=== PATIENT | male | born 1970 | race Two or more races ===

== ENCOUNTER 2020-07-02 12:29 | Emergency (ER) | payer OTHER, SELFPAY ==
[2020-07-02 13:22] VITALS: BP 155/94; PULSE 82; RESP 18; TEMP 37.1; O2SAT 98; BMI 36.3
--- NOTE | 2020-07-02 15:08 | ED_ITS ---
HPI - General Adult General Chief complaint: GI Bleed <MARA Amanda Last Filed: 07/02/20 16:24> Stated complaint: rectal bleed <MARA Amanda Last Filed: 07/02/20 16:24> Time Seen by Provider: 07/02/20 14:20 <MARA Amanda Last Filed: 07/02/20 16:24> Source: patient <MARA Amanda Last Filed: 07/02/20 16:24> Mode of arrival: ambulatory <MARA Amanda Last Filed: 07/02/20 16:24> Limitations: no limitations <MARA Amanda Last Filed: 07/02/20 16:24> History of Present Illness HPI narrative: 50-year-old male here with hemorrhoid per patient x1 week which has been painful. Patient noticed this morning in the night when he woke up to use the bathroom that he was having some bleeding from the rectum. This has continued through the day and he became concerned and brought himself here to the emergency department. Denies constipation, abdominal pain or vomiting. Stools are brown <MARA Amanda Last Filed: 07/02/20 16:24> Related Data Home medications: Previous Rx's Medication Instructions Recorded docusate sodium [Colace] 100 mg PO BID #20 cap 07/02/20 oxycodone 5 mg PO Q6H PRN #10 tab 07/02/20 polyethylene glycol 3350 [Miralax] 17 g PO BID #238 g 07/02/20 <MARA Amanda Last Filed: 07/02/20 16:24> Allergies/adverse reactions: Allergies Allergy/AdvReac Type Severity Reaction Status Date / Time No Known Allergies Allergy Verified 07/02/20 13:21 <MARA Amanda Last Filed: 07/02/20 16:24> Review of Systems Review of Systems: Yes all other systems are reviewed and are negative <MARA Amanda Last Filed: 07/02/20 16:24> Constitutional: Constitutional: Reports no additional constitutional complaints, Denies body ache(s), Denies chills, Denies fever(s), Denies headache(s) and Denies weakness <Tiffany Lazaro NP - Last Filed: 07/02/20 16:24> Eyes: Eyes: Reports no additional eye complaints and Denies change in vision <Tiffany Lazaro NP - Last Filed: 07/02/20 16:24> ENT: Reports system reviewed and no additional complaints, except as documented, Denies dizziness, Denies headache(s), Denies nasal congestion, Denies nasal discharge and Denies neck pain <Tiffany Lazaro NP - Last Filed: 07/02/20 16:24> Cardiovascular: Cardiovascular: Reports no additional cardiovascular complaints, Denies chest pain, Denies leg edema and Denies dyspnea <Tiffany Lazaro NP - Last Filed: 07/02/20 16:24> Respiratory: Respiratory: Reports no additional respiratory complaints, Denies cough and Denies dyspnea <Tiffany Lazaro NP - Last Filed: 07/02/20 16:24> Gastrointestinal: Gastrointestinal: Reports no additional gastrointestinal complaints, Denies abdominal pain, Denies melena, Denies hematochezia, Denies diarrhea, Denies nausea and Denies vomiting <Tiffany Lazaro NP - Last Filed: 07/02/20 16:24> Comments: Rectal bleeding <Tiffany Lazaro NP - Last Filed: 07/02/20 16:24> Genitourinary: Genitourinary: Denies urinary incontinence <Tiffany Lazaro NP - Last Filed: 07/02/20 16:24> Musculoskeletal: Musculoskeletal: Reports no additional musculoskeletal complaints, Denies back pain, Denies arthralgias, Denies joint swelling, Denies neck pain, Denies numbness and Denies tingling <Tiffany Lazaro NP - Last Filed: 07/02/20 16:24> Integumentary/Breasts: Skin/Breast: Reports system reviewed and no additional complaints, except as docu and Denies rash <Tiffany Lazaro NP - Last Christ ed: 07/02/20 16:24> Neurologic: Reports system reviewed and no additional complaints, except as documented, Denies Abnormal speech present, Denies dizziness, Denies headache(s), Denies numbness, Denies tingling and Denies weakness <Tiffany Lazaro NP - Last Filed: 07/02/20 16:24> [facility] Past Medical History Attestation statement: The following information was validated with the patient. <Tiffany Lazaro NP - Last Filed: 07/02/20 16:24> Source: old records reviewed and nursing notes reviewed <Tiffany Lazaro NP - Last Filed: 07/02/20 16:24> Physical Exam Vital Signs: Vital Signs: Last Vital Signs Temp 98.7 F 07/02/20 13:22 Pulse 82 07/02/20 13:22 Resp 18 07/02/20 13:22 BP 155/94 H 07/02/20 13:22 Pulse Ox 98 07/02/20 13:22 Body Mass Index 36.3 <Tiffany Lazaro NP - Last Filed: 07/02/20 16:24> Vital Signs: Last Vital Signs Temp 98.7 F 07/02/20 13:22 Pulse 82 07/02/20 13:22 Resp 18 07/02/20 13:22 BP 155/94 H 07/02/20 13:22 Pulse Ox 98 07/02/20 13:22 Body Mass Index 36.3 <Jb Robins MD - Last Filed: 07/17/20 07:58> Const: General: cooperative, healthy appearing, comfortable and no acute distress <Tiffany Lazaro NP - Last Filed: 07/02/20 16:24> Orientation/consciousness: patient oriented x3 <Tiffany Lazaro NP - Last Filed: 07/02/20 16:24> Limitations: no limitations <Tiffany Lazaro NP - Last Filed: 07/02/20 16:24> HENMT: Head: Yes normal to inspection <Tiffany Lazaro NP - Last Filed: 07/02/20 16:24> Ears: hearing grossly normal bilaterally <MARA Amanda Last Filed: 07/02/20 16:24> General nose exam: Normal external nose present <MARA Amanda Last Filed: 07/02/20 16:24> Face and sinus: Yes normal facial exam <Tiffany Lazaro NP - Last Filed: 07/02/20 16:24> Mouth: Normal oral and palatal mucosa present <Tiffany Lazaro NP - Last Filed: 07/02/20 16:24> Throat: Yes posterior oropharynx normal <Tiffany Lazaro NP - Last Filed: 07/02/20 16:24> Eyes: General: appearance normal, both eyes and all related structures <Tiffany Lazaro NP - Last Filed: 07/02/20 16:24> Pupils: Equal, round and reactive pupils present <Tiffany Lazaro NP - Last Filed: 07/02/20 16:24> Neck: Neck: Yes normal visual inspection <Tiffany Lazaro NP - Last Filed: 07/02/20 16:24> Chest: Chest palpation & inspection: normal inspection of the chest <Tiffany Lazaro NP - Last Filed: 07/02/20 16:24> Resp: Effort & Inspection: normal respiratory effort <Tiffany Lazaro NP - Last Filed: 07/02/20 16:24> Auscultation: clear to auscultation bilaterally <Tiffany Lazaro NP - Last Filed: 07/02/20 16:24> Cardio: Rate: regular rate <Tiffany Lazaro NP - Last Filed: 07/02/20 16:24> Rhythm: regular rhythm <Tiffany Lazaro NP - Last Filed: 07/02/20 16:24> Peripheral pulses: Peripheral pulses 2+ throughout <Tiffany Lazaro NP - Last Filed: 07/02/20 16:24> GI: Other: Kristian RN present. At the 6 o'clock position there is a thrombosed hemorrhoid which is partially draining with a large clot obstructing the opening of the hemorrhoid. Very te nder <Tiffany Lazaro NP - Last Filed: 07/02/20 16:24> Inspection: Yes normal to inspection <Tiffany Lazaro NP - Last Filed: 07/02/20 16:24> Palpation (GI): Soft to palpation and nontender <Tiffany Lazaro NP - Last Filed: 07/02/20 16:24> Auscultation: normal bowel sounds <Tiffany Lazaro NP - Last Filed: 07/02/20 16:24> Back/Spine/Pelvis: Thoracic/Lumbar Spine: thoracic and lumbar spine normal to inspection <Tiffany Lazaro NP - Last Filed: 07/02/20 16:24> Skin: General skin exam: no rashes or lesions noted <Tiffany Lazaro NP - Last Filed: 07/02/20 16:24> Neuro: General: patient oriented x3, no focal motor deficits and normal sensation to monofilament <Tiffany Lazaro NP - Last Filed: 07/02/20 16:24> Cranial nerves: Yes Equal, round and reactive pupils present <Tiffany Lazaro NP - Last Filed: 07/02/20 16:24> Cognition (Neuro): normal cognition <Tiffany Lazaro NP - Last Filed: 07/02/20 16:24> Speech: No Abnormal speech present <Tiffany Lazaro NP - Last Filed: 07/02/20 16:24> Gait exam (Neuro): Normal gait present <Tiffany Lazaro NP - Last Filed: 07/02/20 16:24> Motor exam (neuro): 5/5 motor strength present throughout <Tiffany Lazaro NP - Last Filed: 07/02/20 16:24> Extrem: General: Yes normal to inspection <Tiffany Lazaro NP - Last Filed: 07/02/20 16:24> Course Course Course Narrative: 50-year-old male here with thrombosed hemorrhoid x 1 week. Has had some rectal bleeding today from the site. No black or bloody stools. On exam the patient has a large thrombosed hemorrhoid. There was a small incision and a clot obstructing the incision. I was able to express 2-3 large clots from the site however the patient had quite a bit of pain. The area was numbed with 4% lidocaine and I attempted to break up the clots with foreceps and expressed a moderate amounts of blood and clots but the patient was unable to complete the procedure d/t pain. Will refer to general surgery. Discussed with Dr Spangler who will follow-up with patient in the office. Reviewed worrisome signs and symptoms and when to return to the emergency department. Comfortable discharge home. <Tiffany Lazaro NP - Last Filed: 07/02/20 16:24> I have reviewed the chart <Jb Robins MD - Last Filed: 07/17/20 07:58> Medical Decision Making Medical Records Medical records reviewed: Yes I reviewed the patient's medical records. <Tiffany Lazaro NP - Last Filed: 07/02/20 16:24> Lab Data Lab results reviewed: Yes I reviewed the patient's lab results. <Tiffany Lazaro NP - Last Filed: 07/02/20 16:24> Discharge Plan Discharge Clinical Impression: Hemorrhoids, thrombosed <Tiffayn Lazaro NP - Last Filed: 07/02/20 16:24> Patient Disposition: Home, Self-Care <Tiffany Lazaro NP - Last Filed: 07/02/20 16:24> Instructions: Thrombosed Hemorrhoid (ED) <Tiffany Lazaro NP - Last Filed: 07/02/20 16:24> Additional Instructions: Avoid constipation (fiber, fluid in the diet) I expect that this is going to continue to bleed and the next few days. You may use a pad or gauze at the site for this. Call Dr. Spangler office today. He is expecting your call and will see you in the office tomorrow or the next day <Tiffany Lazaro NP - Last Filed: 07/02/20 16:24> Prescriptions: New docusate sodium [Colace] 100 mg capsule 100 mg PO BID Qty: 20 RF: 0 polyethylene glycol 3350 [Miralax] 17 gram/dose powder 17 g PO BID Qty: 238 RF: 0 oxycodone 5 mg tablet 5 mg PO Q6H PRN (Reason: pain) Qty: 10 RF: 0 <Tiffany Lazaro NP - Last Filed: 07/02/20 16:24> Referrals: Geo Spangler MD [Physician] - 2 days <Tiffany Lazaro NP - Last Filed: 07/02/20 16:24> Interventions: ED Discharge Assessment Last Done: 07/02/20 16:00 <Tiffany Lazaro NP - Last Filed: 07/02/20 16:24> Discharge Date/Time: 07/02/20 16:02 <Tiffany Lazaro NP - Last Filed: 07/02/20 16:24>
[2020-07-02] MEDS: Lidocaine HCl 4 % MPF w/MADgic 5 ML AMPUL 1 APPL TOPICAL (15:57)
== END 2020-07-02 16:02 | disposition home or self-care (01) ==
PROVIDERS: Emergency Provider Emergency Medicine
DX: K64.5 Perianal venous thrombosis (principal); K62.5 Hemorrhage of anus and rectum
CPT/HCPCS: 99283; 99284

== ENCOUNTER → 2020-07-25 15:23 | Outpatient (BNVA) | payer OTHER, SELFPAY | PROVIDERS: Visit Provider Surgery | DX: K64.5 Perianal venous thrombosis (principal) | CPT/HCPCS: 46600 ==

== ENCOUNTER 2022-08-18 06:28 | Day surgery (SDC) | payer OTHER, SELFPAY ==
--- NOTE | 2022-08-15 10:26 | P.CONAN_ITS ---
Documented by User: Maryuri Metcalf NP 08/15/22 10:27 HPI - Anesthesia Eval Consult details Narrative: 52yo M for Colonoscopy [facility] Active Problems Active Problems: All Active Problems (Updated 07/25/20 @ 16:07 by Geo Spangler MD) Thrombosed hemorrhoids (Acute) Past Medical History Medical History (Updated 08/15/22 @ 10:27 by Maryuri Metcalf NP) Hypothyroid Thrombosed hemorrhoids Surgical History Surgical History (Updated 08/15/22 @ 10:27 by Maryuri Metcalf NP) H/O vasectomy History of removal of cyst Social History Social History Alcohol intake: current Alcohol intake frequency: holidays/special occasions only Patient Tobacco Use Status: Never used Tobacco Second Hand Smoke Exposure: No Use of substances other than those prescribed or required for medical reasons: Yes Are you DNR?: No Advance Directives: No Advance Directives Information Provided: Yes Advance Directives on File: No Meds Allergies Allergy/AdvReac Type Severity Reaction Status Date / Time No Known Allergies Allergy Verified 07/02/20 13:21 Home Medications Medication Instructions Recorded Confirmed Last Taken Type levothyroxine 50 mcg tablet 50 mcg PO DAILY 08/15/22 08/15/22 Unknown History Exam Exam Date and Time: August 15, 2022 1026 Documented by User: Patsy Lee MD 08/18/22 08:03 [facility] Past Medical History Medical History (Updated 08/15/22 @ 10:27 by Maryuri Metcalf NP) Hypothyroid Thrombosed hemorrhoids Family History Family history of problems with anesthesia: No Surgical History Surgical History (Updated 08/15/22 @ 10:27 by Maryuri Metcalf NP) H/O vasectomy History of removal of cyst History of Problems with Anesthesia: No Social History Social History Alcohol intake: current Alcohol intake frequency: holidays/special occasions only Patient Tobacco Use Status: Never used Tobacco Second Hand Smoke Exposure: No Use of substances other than those prescribed or required for medical reasons: Yes Are you DNR?: No Advance Directives: No Advance Directives Information Provided: Yes Advance Directives on File: No Meds Allergies Allergy/AdvReac Type Severity Reaction Status Date / Time No Known Allergies Allergy Verified 07/02/20 13:21 Home Medications Medication Instructions Recorded Confirmed Last Taken Type levothyroxine 50 mcg tablet 50 mcg PO DAILY 08/15/22 08/15/22 Unknown History Exam Airway Mallampati Class: II TM Dist: >3cm Neck ROM: Full Loose/Missing/Broken Teeth: No Heart: rr Lungs: cta Assessment and Plan Assessment Anesthesia Assessment: Anesthesia Plan Discussed and Chart Reviewed Final Anesthetic Review Family History of Problems with Anesthesia: No History of Problems with Anesthesia: No NPO: Yes ASA Class: II Final Preanesthetic Review: No Changes in Pt Med Stat, Meds/Allgs Chart Reviewed and Consent Obtained/Reviewed Patient Risk: Low Procedure Risk: Low Anesthetic Plan Anesthetic Plan: MAC: Disposition: Standard PACU
[2022-08-18 07:05] VITALS: BMI 37.5
[2022-08-18 07:15] VITALS: BP 154/101; PULSE 74; RESP 16; TEMP 36.3; O2SAT 98
[2022-08-18] MEDS: Lactated Ringers 1,000 ML 100 ML IVCONT (07:21)
[2022-08-18 08:35] VITALS: BP 115/92; PULSE 76; RESP 16; TEMP 36.2; O2SAT 96
--- NOTE | 2022-08-18 08:36 | P.BOP_ITS ---
Brief Operative Note Date of Service: 08/18/22 Pre-op diagnosis: Screening Post-op diagnosis: other (Colon polyp) Procedure: Colonoscopy to the cecum with hot snare polypectomy Surgeon: Dann Daniels Anesthesia: MAC Was an Professional Development Instructor used for this Procedure?: No Estimated blood loss (mL): 0 Pathology: other (A. Polyp at 50cm) Condition: stable Disposition: PACU
[2022-08-18 08:50] VITALS: BP 124/80; PULSE 71; RESP 18; TEMP 36.2; O2SAT 97
--- NOTE | 2022-08-18 09:17 | OP_ITS ---
DATE OF SERVICE: 08/18/2022 SURGEON: Dann Daniels MD INDICATIONS: The patient presents for evaluation of colorectal cancer screening. Full consent obtained from him for this, including risks of bleeding and perforation. PREOPERATIVE DIAGNOSIS: POSTOPERATIVE DIAGNOSIS: PROCEDURE PERFORMED: Colonoscopy to cecum with hot snare polypectomy. ESTIMATED BLOOD LOSS: COMPLICATIONS: ANESTHESIA: Monitored anesthesia care. ASSISTANTS: SPECIMENS: PREOPERATIVE DIAGNOSES: Colorectal cancer screening. POSTOPERATIVE DIAGNOSES: Colorectal cancer screening, colon polyp, diverticulosis, and internal hemorrhoids. DESCRIPTION OF PROCEDURE: The patient was placed in the left lateral decubitus position. The digital rectal exam revealed no abnormalities. The Olympus video pediatric colonoscope was entered into the rectum and advanced easily to the cecum. Once in the cecum, I did identify normal-appearing cecal pouch with appendiceal orifice and a normal-appearing ileocecal valve. The entire cecum and ileocecal valve appeared normal without any sign of mass or ulceration. The scope was then slowly withdrawn assessing all mucosal surfaces carefully. Preparation was excellent. At 50 cm was an approximately 8 mm grossly adenomatous polyp on a short stalk, which was removed by hot snare polypectomy and recovered by suction. The polypectomy site appeared clean, without any sign of residual polyp or bleeding. I did not visualize any other polyps, colitis, nor angiodysplasia. There was a [id number] amount of sigmoid diverticulosis. In the rectum, the scope was retroflexed visualizing internal hemorrhoids, but no other pathology. The rectal mucosa appeared normal. The scope was straightened and withdrawn from the patient. He tolerated procedure well and was returned to recovery area in stable condition. IMPRESSION: 1. Colon polyp. 2. Diverticulosis. 3. Internal hemorrhoids. PLAN: The results of the pathology will be checked. If this is a tubular adenoma, I would recommend a followup colonoscopy in 5 years. If it is only hyperplastic, I would recommend a followup coloscopy in 10 years. He was advised not to use any aspirin or NSAIDs for 1 week. MD MEENA Anders/SEVERINOL / [id number]
== END 2022-08-18 09:11 | disposition home or self-care (01) ==
PROVIDERS: Visit Provider Internal Medicine
PROC: 0DJD8ZZ Inspection of Lower Intestinal Tract, Via Natural or Artificial Opening Endoscopic (ICD-10-PCS; CPT 45378; principal; 2022-08-18 07:30)
DX: Z12.11 Encounter for screening for malignant neoplasm of colon (principal); D12.5 Benign neoplasm of sigmoid colon; K57.30 Diverticulosis of large intestine without perforation or abscess without bleeding; K64.8 Other hemorrhoids; E03.9 Hypothyroidism, unspecified; Z98.52 Vasectomy status; Z79.899 Other long term (current) drug therapy
CPT/HCPCS: 45385; 88305

== ENCOUNTER 2023-05-05 06:04 | Outpatient (REF) | payer OTHER, SELFPAY ==
[2023-05-05 07:28] LABS: Estimated Average Glucose 114 mg/dL; Hemoglobin A1C 149.1663 umol/L; Hemoglobin A1c % 5.6 % (<6.0)
[2023-05-05 08:06] LABS: Alanine Aminotransferase 51 U/L (0-40); Albumin Level 4.4 g/dL (3.5-5.0); Alkaline Phosphatase 62 U/L (39-117); Anion Gap 12 (12-20); Aspartate Amino Transferase 41 U/L (5-37); Bilirubin Total 0.6 mg/dL (0.0-1.0); Blood Urea Nitrogen 17 mg/dL (9-16); Calcium 9.9 mg/dL (8.4-10.2); Carbon Dioxide 28 mmol/L (22-29); Chloride 104 mmol/L (96-108); Cholesterol 197 mg/dL (<200); Estimated Glomerular Filt Rate > 60; Glucose Random 93 mg/dL (60-115); HDL Cholesterol 46 mg/dL (>40); LDL Cholesterol Calculated 132 mg/dL (<100); Potassium 4.4 mmol/L (3.3-5.1); Sodium 140 mmol/L (135-145); Total Protein 7.7 g/dL (6.5-8.0); Triglycerides 98 mg/dL (<150)
[2023-05-05 09:29] LABS: Free T4 (Free Thyroxine) 0.91 ng/dL (0.71-1.85)
[2023-05-05 10:32] LABS: Reflex LDLD? No
== END 2023-05-05 06:05 | disposition home or self-care (01) ==
LOC: HO.LAB 06:04
PROVIDERS: PCP Family Medicine; Visit Provider Family Medicine
DX: I10 Essential (primary) hypertension (principal); E03.9 Hypothyroidism, unspecified
CPT/HCPCS: 36415; 80053; 80061; 83036; 84439; 84443

== ENCOUNTER 2024-01-19 16:25 | Outpatient (REF) | payer OTHER, SELFPAY ==
[2024-01-19 17:36] LABS: MANUAL DIFF FLAG NO
[2024-01-19 17:58] LABS: Basophils Absolute Auto 0.1 X10*3/uL (0.0-0.2); Basophils Percent Auto 0.8 % (0-2); Eosinophils Absolute Auto 0.3 X10*3/uL (0.0-0.4); Eosinophils Percent Auto 4.7 % (0-4); Hematocrit 47.2 % (42.0-52.0); Hemoglobin 15.8 g/dl (14.0-18.0); Imm Gran Abs Auto 0.01 X10*3/uL (0.00-0.03); Imm Gran Pct Auto 0.2 % (0.0-0.4); Lymphocytes Absolute Auto 1.8 X10*3/uL (1.2-4.9); Lymphocytes Percent Auto 29.6 % (20-40); Mean Corpuscular HGB Conc 33.5 g/dl (31.0-36.0); Mean Corpuscular Hemoglobin 28.8 pg (27.0-33.0); Mean Platelet Volume 9.6 fL (9.4-12.4); Monocytes Absolute Auto 0.6 X10*3/uL (0.1-1.2); Monocytes Percent Auto 9.3 % (2-11); Neutrophils Absolute Auto 3.3 x10*3/uL (2.0-8.3); Neutrophils Percent Auto 55.4 % (45-73); Platelet Count 222 X10*3/uL (160-400); Red Blood Count 5.49 X10*6/uL (4.60-5.80); Red Cell Distribution Width 13.2 % (11.0-16.0)
[2024-01-19 18:24] LABS: Creatinine Urine 139.05 mg/dL; Microalbum/Creatinine Ratio Ur 4.3 ug/mg cr (<30)
[2024-01-19 18:28] LABS: Alanine Aminotransferase 54 U/L (0-40); Albumin Level 4.5 g/dL (3.5-5.0); Alkaline Phosphatase 75 U/L (39-117); Anion Gap 13 (12-20); Aspartate Amino Transferase 53 U/L (5-37); Bilirubin Direct 0.2 mg/dL (0.0-0.5); Bilirubin Total 0.6 mg/dL (0.0-1.0); Blood Urea Nitrogen 24 mg/dL (9-16); Calcium 10.2 mg/dL (8.4-10.2); Carbon Dioxide 25 mmol/L (22-29); Chloride 107 mmol/L (96-108); Cholesterol 287 mg/dL (<200); Estimated Glomerular Filt Rate > 60; Glucose Random 108 mg/dL (60-115); HDL Cholesterol 57 mg/dL (>40); LDL Cholesterol Calculated 183 mg/dL (<100); Sodium 141 mmol/L (135-145); Total Protein 7.9 g/dL (6.5-8.0); Triglycerides 236 mg/dL (<150)
[2024-01-19 18:31] LABS: TSH reflex Free T4 5.35 uIU/mL (0.32-4.0)
[2024-01-19 19:49] LABS: Reflex LDLD? No
[2024-01-19 21:02] LABS: Free T4 (Free Thyroxine) 0.77 ng/dL (0.71-1.85)
[2024-01-24 14:34] LABS: Testosterone, Total 595 ng/dL (250-1100)
== END 2024-01-19 16:26 | disposition home or self-care (01) ==
LOC: HO.HHCL 16:25
PROVIDERS: Visit Provider Family Medicine
DX: R74.01 Elevation of levels of liver transaminase levels (principal); N52.9 Male erectile dysfunction, unspecified; E78.5 Hyperlipidemia, unspecified; I10 Essential (primary) hypertension; E03.9 Hypothyroidism, unspecified; Z12.5 Encounter for screening for malignant neoplasm of prostate
CPT/HCPCS: 36415; 80048; 80061; 80076; 82043; 82570; 84153; 84403; 84439; 84443; 85025

== ENCOUNTER 2024-05-20 09:57 | Outpatient (REF) | payer BC, SELFPAY ==
--- OUTSIDE RECORDS SUMMARY | 2024-05-20 10:44 | XMS_ITS | Encounter Summary ---
Author Organization [employer] Address [address] [place] [address] Care Team Providers Care Order Filler Name Role Phone Chelsea Mejía MD Primary Care Provider [phone] Encounter Details Date Type Department Care Team (Latest Contact Info) Description 05/17/2024 Travel Social History Tobacco Use Types Packs/Day Years Used Date Smoking Tobacco: Never Smokeless Tobacco: Never Alcohol Use Standard Drinks/Week Comments Yes 0 (1 standard drink = 0.6 oz pur e alcohol) oca Depression Answer Date Recorded Patient Health Questionnaire-9 Score 0 05/17/2024 Patient Health Questionnaire-9 Score 0 05/17/2024 Last PHQ-9: Questionnaire Data Not on file 0 05/17/2024 Housing Stability Answer Date Recorded What is your housing situation today? I have sonido salazar 05/02/[address] you li ve. Do you have problems with any of the following? None of the above 05/02/2024 Food Insecurity Answer Date Recorded Within the past 12 months, y ou worried that your food would run out before you got money to buy more: Never True 05/02/2024 Within the past 12 months,th e food you bought just didn't last and you didn't have enough money to get more: Never True 05/2024 Transportation Answer Date Recorded In the past 12 months, has l ack of transportation kept you from medical appts, meetings, work or from getting things needed for daily living? No 05/02/2024 Utilities Answer Date Recorded In the past 12 months, has t he electric, gas, oil or water company threatened to shut off services in your home? No 05/02/2024 Depression Answer Date Recorded Patient Health Questionnaire-2 Score 0 05/17/2024 Internet Access Answer Date Recorded Internet Access Q1 Yes 05/02/2024 Internet Access Q2 Not on file 05/02/2024 Sex and Gender Information Value Date Recorded Sex Assigned at Male 01/27/2022 10:33 AM EDT Legal Sex Male 10:33 AM EDT Gender Identity Male 01/27/2022 10:33 AM EDT Sexual Orientation Don't know 01/27/2022 10 :33 AM EDT documented as of this encounter Plan of Treatment Upcoming Encounters Date Type Department Care Team (Late st Contact Info) Description 06/03/2024 2:00 PM EST Office Visit [facility] [address] [place] [address] Juve Allison MD [address] [place] [address] documented as of this encounter Visit Diagnoses Not on filedocumented in this encounter Additional Health Concerns Assessment Noted Time PHQ-9 Depression Total Score: 0 05/17/19 25 3:50 PM EST documented as of this encounter Care Teams Order Filler Relationship Specialty Start Date End Date Chelsea Mejía MD [address] [place] [address] PCP - General Family Medicine 04/20/23 documented as of this encounter
--- OUTSIDE RECORDS SUMMARY | 2024-05-20 10:44 | XMS_ITS | Patient Health Record ---
Author Organization [facility] Address [address] [place] [id number] Care Team Providers Care Extruder Name Role Phone Grady Helton Primary Care Provider Dann Garcia Unavailable [phone] ALLERGIES No Known Allergies REASON FOR REFERRAL No Information MEDICATIONS Medication SIG (Take, Route, Frequency, Duration) Notes Start Date End Date Status Levothyroxine Sodium 50 MCG Oral for 90 Active IMMUNIZATIONS Vaccine Route Administration Date Status Comme nts Influenza Unknown 11/28/2021 Administered SOCIAL HISTORY Tobacco Use: Social History Observation Description Date Details (start date - stop date) Never Smoker NA - NA Sex Assigned At : Social History Observation Description Sex Assigned At Unknown Tobacco Use/Smoking Question Answer Notes Patient is a nonsmoker Alcohol Screen Question Answer Notes Did you have a drink contain ing alcohol in the past year? Yes How often did you have a dri nk containing alcohol in the past year? 2 to 3 times a week (3 points) How many drinks did you have on a typical day when you were drinking in the past year? 7 to 9 drinks (3 points) Points 6 Interpretation Positive PROBLEMS Problem Type ICD Code Onset Dates Problem Status W/U Status Risk SNOMED Code Notes Problem Colon cancer screening (Z12.11) Active confirmed 089847649 Problem Preprocedural examination (Z01.818) Active confirmed [id number] Problem Diverticulosis of colon (K57.30) Active confirmed Diverticulosi s of colon (370206697) PLAN OF TREATMENT Pending Test Test Name Order Date Pathology 08/18/2022 Future Test Test Name Order Date COLONOSCOPY 05/30/2022 Insurance Providers Payer Name Payer Address Payer Phone Subscriber Number Group Number Insured Name Patient Relationship to Insured Coverage Start Date Coverage End Date [facility] [address] [place] [phone] [id number] JUAN CESAR Self - patient is the insured MEDICAL (GENERAL) HISTORY Medical History History ICD Code Denies CO,DM,CVA,Lung disease,renal dise ase Hypothyroidism Surgical History Surgery Date(Month/Year) Vasectomy Left leg benign tumor removal [place] teeth extraction
--- OUTSIDE RECORDS SUMMARY | 2024-05-20 10:44 | XMS_ITS | Encounter Summary ---
Author Organization [employer] Address [address] [place] [address] [address] [place] [address] Care Team Providers Care Obstetrical Nurse Name Role Phone Grady Helton MD Primary Care Provider Kemi Albarran Primary Care Provider [phone] Kemi Aguilar [employer] Primary Care Provider [phone]- [phone] Sandra Jaeger NP Primary Care Provider [phone] Chelsea Mejía MD Primary Care Provider [phone] Reason for Visit * Reason Comments Med Refill Encounter Details Date Type Department Care Team (Late st Contact Info) Description 04/27/2022 Refill [facility] [address] [place] [address] Kemi Aguilar [address] [place] [address] Hypothyroidism, unspecified type Social History Tobacco Use Types Packs/Day Years Used Date Smoking Tobacco: Never Assessed Sex and Gender Information Value Date Recorded [...] 2:00 PM EST Office Visit [facility] [address] [place], [place] [phone] uJve Allison MD [address] [place], [place] [phone] documented as of this encounter Visit Diagnoses Diagnosis Hypothyroidism, unspecified type documented in this encounter Care Teams Obstetrical Nurse Relationship Specialty Start Date End Date Grady Helton MD PCP - General Family Medicine 03/14/19 04/27/22 Kemi Aguilar FNP PCP - General Family Medicine 04/28/22 09/10/22 Kemi Aguilar FNP PCP - General Family Medicine 11/03/22 01/05/23 Sandra Jaeger NP [address] [place] [address] PCP - General Family Medicine 01/06/23 04/19/23 Chelsea Mejía MD [address] [place] [address] PCP - General Family Medicine 04/20/23 documented as of this encounter
--- OUTSIDE RECORDS SUMMARY | 2024-05-20 10:44 | XMS_ITS | Encounter Summary ---
Author Organization [employer] Address [address] [facility] [address]t [place] [address] Care Team Providers Care Hat Block Bench Hand Name Role Phone Chelsea Mejía MD Primary Care Provider [phone] Encounter Details Date Type Department Care Team (Late st Contact Info) Description 05/17/2024 1:45 PM EST Office Visit [facility] [address] [place] [address] Chelsea Mejía MD [address] [place] [address] Routine general medical examination at a health care facility (Primary Dx); Essential hypertension; Acquired hypothyroidism; Tubular adenoma; Dyslipidemia; Erectile dysfunction, unspecified erectile dysfunction type; Varicose veins of lower extremity, unspecified laterality, unspecified whether complicated; Daytime somnolence; Obesity (BMI 35.0-39.9 without comorbidity); Transaminitis Social History Tobacco Use Types Packs/Day Years [...] AM EDT documented as of this encounter Last Filed Vital Signs Vital Sign Reading Time Taken Comments Blood Pressure 149/84 05/17/2024 2:25 PM EST Pulse 85 05/17/2024 2:03 PM EST Temperature 36.3 ??C (97.3 ??F) 05/17/2024 2:03 PM ES T Respiratory Rate 19 05/17/2024 2:03 PM EST Oxygen Saturation 97% 05/17/2024 2:03 PM EST Inhaled Oxygen Concentration - - Weight 96.3 kg (212 lb 6.4 oz) 05/17/2024 2:03 P M EST Height - - Body Mass Index 34.81 04/20/2023 2:20 PM EST documented in this encounter Miscellaneous Notes * Assessment & Plan Note - Ivanna Lowry MA - 05/17/2024 2:57 PM ESTAssociated Problem(s): Dyslipidemia Currently not on medication since 10-year ASCVD risk is 6.2% Continue working on lifestyle modifications * Assessment & Plan Note - Ivanna Lowry MA - 05/17/2024 2:57 PM ESTAssociated Problem(s): Tubular adenoma - colonoscopy on 08/18/[address] Daniels - lifestyle modifications to prevent colon cancer * Assessment & Plan Note - Ivanna Lowry MA - 05/17/2024 2:57 PM ESTAssociated Problem(s): Varicose veins of lower extremity - s/p phlebectomy by [facility] vascular specialist in 2019 * Assessment & Plan Note - Ivanna Lowry MA - 05/17/2024 2:56 PM ESTAssociated Problem(s): Daytime somnolence - loud snoring - consider evaluating with sleep study * Assessment & Plan Note - Ivanna Lowry MA - 05/17/2024 2:56 PM ESTAssociated Problem(s): Essential hypertension -Goal BP < 140/90 per JNC-8 and < 130/80 per ACC/AHA guideline (Treatment threshold >= 140/90) -BP not at goal -Continue working on lifestyle modifications -Recommended self-monitoring BP. -Resume losartan 25 mg daily -Treatment Hx: Prescribed hydrochlorothiazide previously, but never took it -consider sleep study -Follow up in 3 mo, sooner if any problem arises * Assessment & Plan Note - Ivanna Lowry MA - 05/17/2024 2:56 PM ESTAssociated Problem(s): Erectile dysfunction - check testosterone, PSA, tsh - optimize chronic disease management - prescribe tadalafil if lab is within normal limit * Assessment & Plan Note - Ivanna Lowry MA - 05/17/2024 2:56 PM ESTAssociated Problem(s): Hypothyroidism - current replacement levothyroxine 50 mcg daily - check thyroid function test and adjust accordingly - Ordered TSH with Reflex to Free T4 05/17/24 * Assessment & Plan Note - Ivanna Lowry MA - 05/17/2024 2:51 PM ESTAssociated Problem(s): Obesity (BMI 35.0-39.9 without comorbidity) - will try GLP1RA - Will increase Wegovy dose to 1 mg. If pt has no side effects after 4 doses, we will increase his the dose to 2 mg. 05/17/24 documented in this encounter Plan of Treatment Upcoming Encounters Date Type Department Care Team (Late st Contact Info) Description 06/03/2024 2:00 PM EST Office Visit [facility] [address] [place] [address] Juve Allison MD [address] [place] [address] Scheduled Orders Name Type Priority Associated Diagnoses Orde r Schedule TSH with Reflex to Free T4 Lab Routine Acquired hypothyroidism Expected: 05/17/2024 (Approximate), Expires: 05/17/2025 Hepatic Function Panel Lab Routine Transaminitis Expected: 05/17/2024 (Approximate), Expires: 05/17/2025 Hepatitis C Antibody with Reflex to HCV, RNA, Quantitative, Real-Time PCR Lab Routine Transaminitis Expected: 05/17/2024 (Approximate), Expires: 05/17/2025 Hepatitis B Surface Antibody, Qualitative Lab Routine Transaminitis Expected: 05/17/2024 (Approximate), Expires: 05/17/2025 Hepatitis B Core Antibody, Total Lab Routine Transaminitis Expected: 05/17/2024 (Approximate), Expires: 05/17/2025 Hepatitis B surface antigen, EIA Lab Routine Transaminitis Expected: 05/17/2024 (Approximate), Expires: 05/17/2025 Hepatitis A Antibody, Total Lab Routine Transaminitis Expected: 05/17/2024 (Approximate), Expires: 05/17/2025 documented as of this encounter Visit Diagnoses Diagnosis Routine general medical examination at a health care facility- Primary Essential hypertension Unspecified essential hypertension Acquired hypothyroidism Unspecified hypothyroidism Tubular adenoma Benign neoplasm of unspecified site Dyslipidemia Other and unspecified hyperlipidemia Erectile dysfunction, unspecified erectile dysfunction type Varicose veins of lower extremity, unspecified laterality, unspecified whether complicated Daytime somnolence Obesity (BMI 35.0-39.9 without comorbidity) Transaminitis Nonspecific elevation of levels of transaminase or lactic acid dehydrogenase (LDH) documented in this encounter Additional Health Concerns Assessment Noted Time PHQ-9 Depression Total Score: 0 05/17/19 25 3:50 PM EST documented as of this encounter Care Teams Hat Block Bench Hand Relationship Specialty Start Date End Date Chelsea Mejía MD [address] [place] [id number] PCP - General Family Medicine 04/20/23 documented as of this encounter
--- OUTSIDE RECORDS SUMMARY | 2024-05-20 10:44 | XMS_ITS | Encounter Summary ---
Author Organization [employer] Address [address] [facility] 7[address] [place] [address] Care Team Providers Care Game Artist Name Role Phone Chelsea Mejía MD Primary Care Provider [phone] Encounter Details Date Type Department Care Team (Late st Contact Info) Description 01/22/2024 Abstract [facility] [address] [place] [address] Sadaf Gerardo MA Social History Tobacco Use Types Packs/Day Years Used Date Smoking Tobacco: Never Smokeless Tobacco: Never Alcohol Use Standard Drinks/Week Comments Yes 0 (1 standard drink = 0.6 oz pur e alcohol) oca Housing Stability Answer Date Recorded What is your housing situation today? I have sonido marie 04/20/[address] you li ve. Do you have problems with any of the following? None of the above 04/20/2023 Food Insecurity Answer Date Recorded Within the past 12 months, y ou worried that your food would run out before you got money to buy more: Never True 04/20/2023 Within the past 12 months,th e food you bought just didn't last and you didn't have enough money to get more: Never True Transportation Answer Date Recorded In the past 12 months, has l ack of transportation kept you from medical appts, meetings, work or from getting things needed for daily living? No 04/20/2023 Utilities Answer Date Recorded In the past 12 months, has t he electric, gas, oil or water company threatened to shut off services in your home? No 04/20/2023 Depression Answer Date Recorded Patient Health Questionnaire-2 Score 0 04/20/2023 Sex and Gender Information Value Date Recorded Sex Assigned at Male 01/27/2022 10:33 AM EDT Legal Sex Male 10:33 AM EDT Gender Identity Male 01/27/2022 10:33 AM EDT Sexual Orientation Don't know 01/27/2022 10 :33 AM EDT documented as of this encounter Plan of Treatment Upcoming Encounters Date Type Department Care Team (Late st Contact Info) Description 06/03/2024 2:00 PM EST Office Visit [facility] [address] [place] [address] Juve Allison MD [address] [place] [address] documented as of this encounter Procedures Procedure Name Priority Date/Time Associated Diagnosis Comments COLONOSCOPY Routine 08/18/2022 documented in this encounter Results * Colonoscopy (08/18/2022) Colonoscopy Normal Normal Historical Provider HEALTH MAINTENANCE Final Result documented in this encounter Visit Diagnoses Not on filedocumented in this encounter Care Teams Game Artist Relationship Specialty Start Date End Date Chelsea Mejía MD [address] [place], [place] [phone] PCP - General Family Medicine 04/20/23 documented as of this encounter
--- OUTSIDE RECORDS SUMMARY | 2024-05-20 10:44 | XMS_ITS | Encounter Summary ---
Author Organization [employer] Address [address] [place] [address] Care Team Providers Care Autocad Detailer Name Role Phone Chelsea Mejía MD Primary Care Provider [phone] Reason for Visit * Reason Onset Date Comments chart prep 05/12/2024 Encounter Details Date Type Department Care Team (Late st Contact Info) Description 05/12/2024 Telephone [facility] [address] [place] [address] Sadaf Gerardo MA chart prep Social History Tobacco Use Types Packs/Day Years [...] Recorded Patient Health Questionnaire-2 Score 0 04/20/2023 Internet Access Answer Date Recorded Internet Access Q1 Yes 05/02/2024 Internet Access Q2 Not on file 05/02/2024 Sex and Gender Information Value Date Recorded Sex Assigned at Male 01/27/2022 10:33 AM EDT Legal Sex Male 10:33 AM EDT Gender Identity Male 01/27/2022 10:33 AM EDT Sexual Orientation Don't know 01/27/2022 10 :33 AM EDT documented as of this encounter Miscellaneous Notes * Telephone Encounter - Sadaf Gerardo MA - 05/12/2024 1:46 PM EST .chart Prep Labs: not applicable Images: not applicable Vaccines due: Hep B Due and Shingles in pharmacy Due Referrals: Completed Screenings: Not Applicable Overdue care gaps: Sbirt, PHQ-9, and margarito-7 documented in this encounter Plan of Treatment Upcoming Encounters Date Type Department Care Team (Late st Contact Info) Description 06/03/2024 2:00 PM EST Office Visit [facility] [address] [place] [address] Juve Allison MD [address] [place] [address] documented as of this encounter Visit Diagnoses Not on filedocumented in this encounter Care Teams Autocad Detailer Relationship Specialty Start Date End Date Chelsea Mejía MD [address] [place] [address] PCP - General Family Medicine 04/20/23 documented as of this encounter
--- OUTSIDE RECORDS SUMMARY | 2024-05-20 10:44 | XMS_ITS | Encounter Summary ---
Author Organization [employer] Address [address] [facility] 7t [place] [address] Care Team Providers Care Lay Out Inspector Name Role Phone Chelsea Mejía MD Primary Care Provider [phone] Reason for Visit * Reason Comments Pre-visit Planning SDOH Screening negat bernadette and Tobacco screening negative Encounter Details Date Type Department Care Team ([facility] st Contact Info) Description 05/02/2024 Patient Outreach [facility] [address] [place] [address] Chelsea Mejía MD [address] [place] [address] Pre-visit Planning (SDOH Screening negative and Tobacco screening negative) Social History Tobacco Use Types Packs/Day Years [...] AM EDT documented as of this encounter Progress Notes * Celeste Acharya - 05/02/2024 12:36 PM EST RAINE Salas placed successful outbound call to patient for pre-visit planning. Patient name and confirmed. Patient confirms appt date and time, and has transportation arrangements. Biggest concern for appointment at this time is yes but will discuss it in person. Patient advised to bring to appointment a photo id and insurance card. Appropriate screenings completed in anticipation of appointment. documented in this encounter Plan of Treatment Upcoming Encounters Date Type Department Care Team (Late st Contact Info) Description 06/03/2024 2:00 PM EST Office Visit [facility] [address] [place] [address] FridaRamJuve ellington MD [address] [place] [address] documented as of this encounter Visit Diagnoses Not on filedocumented in this encounter Care Teams Lay Out Inspector Relationship Specialty Start Date End Date Chelsea Mejía MD [address] [place] [address] PCP - General Family Medicine 04/20/23 documented as of this encounter
--- OUTSIDE RECORDS SUMMARY | 2024-05-20 10:44 | XMS_ITS | Clinical Summary ---
Author Organization [employer] Address [address] [facility] 7t [place] [address] Care Team Providers Care Aircraft Sheet Metal Mechanic Name Role Phone Chelsea Mejía MD Primary Care Provider [phone] Allergies No known active allergies Medications levothyroxine (Synthroid, Levoxyl) 50 MCG tabletIndicati ons:Hypothyroi dism, unspecified type TAKE 1 TABLET(50 MCG) BY MOUTH IN THE MORNING 90 tablet 1 024 Active losartan (Cozaar) 25 MG tablet Take 1 tablet (25 mg) by mouth Once per day. 90 tablet 3 024 Active rosuvastatin (Crestor) 5 MG tablet Take 1 tablet (5 mg) by mouth at bedtime. 30 tablet 11 024 2024 Active Semaglutide-We ight Management 1 MG/0.5ML solution auto-injector Inject 0.5 mL (1 mg) under the skin 1 (one) time per week. 2 mL 11 025 Active tadalafil (Cialis) 10 MG tablet Take 1 tablet by mouth >=30 minutes prior to anticipated sexual activity; do not take more than once daily. 10 tablet 3 025 Active Semaglutide-We ight Management (Wegovy) 0.25 MG/0.5ML solution auto-injectorI ndications:Obe sity (BMI 35.0-39.9 without comorbidity) Inject 0.25 mg under the skin 1 (one) time per week. 2 mL 1 024 2024 Discontinued Semaglutide-We ight Management (Wegovy) 0.5 MG/0.5ML solution auto-injector INJECT ONE PEN (=0.5 MG) SUBCUTANEOUSLY ONCE A WEEK 2 mL 025 2024 Discontinued Active Problems Problem Noted Date Diagnosed Date Erectile dysfunction 01/19/2024 Assessment & Plan (05/17/2024 2:56 PM EST): - check testosterone, PSA, tsh - optimize chronic disease management - prescribe tadalafil if lab is within normal limit Assessment & Plan (01/19/2024 6:25 PM EDT): - check testosterone, PSA, tsh - optimize chronic disease management - prescribe tadalafil if lab is within normal limit Dyslipidemia 01/19/2024 Assessment & Plan (05/17/2024 2:57 PM EST): Currently not on medication since 10-year ASCVD risk is 6.2% Continue working on lifestyle modifications Assessment & Plan (01/19/2024 6:26 PM EDT): Currently not on medication since 10-year ASCVD risk is 6.2% Continue working on lifestyle modifications Diverticulosis of colon 04/20/2023 04/20/19 24 Tubular adenoma 04/20/2023 Assessment & Plan (05/17/2024 2:57 PM EST): - colonoscopy on 08/18/[address] Daniels - lifestyle modifications to prevent colon cancer Assessment & Plan (01/19/2024 6:22 PM EDT): - colonoscopy on 08/18/[address] Daniels - lifestyle modifications to prevent colon cancer Assessment & Plan (04/20/2023 6:12 PM EST): - colonoscopy on 08/18/[address] Daniels - lifestyle modifications to prevent colon cancer Hypothyroidism 09/03/2017 04/20/2023 Assessment & Plan (05/17/2024 2:56 PM EST): - current replacement levothyroxine 50 mcg daily - check thyroid function test and adjust accordingly - Ordered TSH with Reflex to Free T4 05/17/24 Assessment & Plan (01/19/2024 6:13 PM EDT): - current replacement levothyroxine 50 mcg daily - check thyroid function test and adjust accordingly Assessment & Plan (04/20/2023 6:15 PM EST): - current replacement levothyroxine 50 mcg daily - check thyroid function test Essential hypertension 08/20/2017 Assessment & Plan (05/17/2024 2:56 PM EST): -Goal BP < 140/90 per JNC-8 and < 130/80 per ACC/AHA guideline (Treatment threshold >= 140/90) -BP not at goal -Continue working on lifestyle modifications -Recommended self-monitoring BP. -Resume losartan 25 mg daily -Treatment Hx: Prescribed hydrochlorothiazide previously, but never took it -consider sleep study -Follow up in 3 mo, sooner if any problem arises Assessment & Plan (01/19/2024 6:17 PM EDT): -Goal BP < 140/90 per JNC-8 and < 130/80 per ACC/AHA guideline (Treatment threshold >= 140/90) -BP not at goal -Continue working on lifestyle modifications -Recommended self-monitoring BP. -Resume losartan 25 mg daily -Treatment Hx: Prescribed hydrochlorothiazide previously, but never took it -consider sleep study -Follow up in 3 mo, sooner if any problem arises Assessment & Plan (04/20/2023 6:11 PM EST): -Goal BP < 140/90 per JNC-8 and < 130/80 per ACC/AHA guideline (Treatment threshold >= 140/90) -BP not at goal -Continue working on lifestyle modifications -Recommended self-monitoring BP. -Start losartan 25 mg daily -Treatment Hx: Prescribed hydrochlorothiazide previously, but never took it -Follow up in 3 mo, sooner if any problem arises Obesity (BMI 35.0-39.9 without comorbidity) 07/2904/20/2023 Assessment & Plan (05/17/2024 2:53 PM EST): - will try GLP1RA - Will increase Wegovy dose to 1 mg. If pt has no side effects after 4 doses, we will increase his the dose to 2 mg. 05/17/24 Assessment & Plan (01/19/2024 6:17 PM EDT): - will try GLP1RA Varicose veins of lower extremity 08/20/2017 04/20/2023 Assessment & Plan (05/17/2024 2:57 PM EST): - s/p phlebectomy by [facility] vascular specialist in 2019 Assessment & Plan (04/20/2023 9:42 PM EST): - s/p phlebectomy by [facility] vascular specialist in 2019 Daytime somnolence 08/20/2017 04/20/2023 Assessment & Plan (05/17/2024 2:56 PM EST): - loud snoring - consider evaluating with sleep study Assessment & Plan (04/20/2023 6:09 PM EST): - loud snoring - consider evaluating with sleep study Encounters Date Type Department Care Team Description 05/17/2024 1:45 PM EST Office Visit [address] [address] Chelsea Mejía MD Routine general medical examination at a health care facility (Primary Dx); Essential hypertension; Acquired hypothyroidism; Tubular adenoma; Dyslipidemia; Erectile dysfunction, unspecified erectile dysfunction type; Varicose veins of lower extremity, unspecified laterality, unspecified whether complicated; Daytime somnolence; Obesity (BMI 35.0-39.9 without comorbidity); Transaminitis 05/17/2024 Travel 05/12/[address] [phone] Sadaf Gerardo MA chart prep 05/02/2024 Patient Outreach [address] [address] Chelsea Mejía MD Pre-visit Planning (SDOH Screening negative and Tobacco screening negative) 04/14/[address] [address] Chelsea Mejía MD 04/14/2024 Telephone [facility] [address] [facility] [place] [address] Sadaf Gerardo MA april recall from Last 3 Months Immunizations Name Administration Dates Next Due Hep B, adult 01/19/2024 Influenza injectable quadriv alent preservative free 04/20/2023,01/20/2022,02/27/2021,2017 Influenza, seasonal, injecta ble, preservative free 01/19/2024 Pfizer Covid-19 Vaccine 12+ 01/19/2024, Tdap 08/20/2017 Social History Tobacco Use Types Packs/Day Years Used Date Smoking Tobacco: Never Smokeless Tobacco: Never Tobacco Cessation:Counseling Given: Not Answered Alcohol Use Standard Drinks/Week Comments Yes 0 [...] Don't know 01/27/2022 10 :33 AM EDT Last Filed Vital Signs Vital Sign Reading [...] oz) 05/17/2024 2:03 P M EST Height 166.4 cm (5' 5.5 ) 04/20/2023 2:20 PM EST Body Mass Index 34.81 04/20/2023 2:20 PM EST Plan of Treatment Upcoming Encounters Date Type Department Care Team (Late st Contact Info) Description 06/03/2024 2:00 PM EST Office Visit [facility] [address] [place], [place] [phone] Juve Allison MD [address] [place] [address] Health Maintenance Due Date Last Done Comments CT Colonography 1972 FIT DNA/Cologuard 1972 FIT 1972 FOBT 1972 HIV Screening 1972 Sigmoidoscopy 1972 Family Planning (PISQ) 1987 Hepatitis C Screening 1990 Pneumococcal Vaccine: 50+ Years (1 of 1 - PCV) 2022 Zoster Vaccines (1 of 2) 2022 Hepatitis B Vaccines (2 of 3 - 19+ 3-dose series) 02/16/2024 01/19/2024 SDOH Screening 05/02/2025 05/02/2024 Alcohol/Substance Use Screening 05/17/2025 05/17/2024 Depression Screening 05/17/2025 05/17/2024, 05/17/19 Tobacco Screening 05/17/2025 05/17/2024 DTaP/Tdap/Td Vaccines (2 - Td or Tdap) 08/21/2027 08/20/2017 Lipid Panel 01/18/2029 01/19/2024, 2023 Colonoscopy 08/18/2032 08/18/2022 Colorectal Cancer Screening 08/18/2032 RSV Patients and Patients Aged 60 years or older (1 - 1-dose 75+ series) 2047 COVID-19 Vaccine Completed 01/19/2024, , 02/27/2021, Additional history exists Influenza Vaccine Completed 01/19/2024, , 01/20/2022, Additional history exists HIB Vaccines Aged Out No longer eligi ble based on patient's age to complete this topic HPV Vaccines Aged Out No longer eligi ble based on patient's age to complete this topic Hepatitis A Vaccines Aged Out No long er eligible based on patient's age to complete this topic IPV Vaccines Aged Out No longer eligi ble based on patient's age to complete this topic Meningococcal Vaccine Aged Out No hever marcie eligible based on patient's age to complete this topic RSV under 20 months Aged Out No longe r eligible based on patient's age to complete this topic Rotavirus Vaccines Aged Out No longer eligible based on patient's age to complete this topic Procedures Procedure Name Priority Date/Time Associated Diagnosis Comments LIPID PANEL WITH REFLEX TO DIRECT LDL Routine 01/19/2024 4:30 PM EDT Dyslipidemia HM COLONOSCOPY Routine 08/18/2022 from Last 3 Months or Most Recently Relevant to Health Maintenance Results * (ABNORMAL) Lipid Panel with Reflex to Direct LDL (01/19/2024 4:30 PM EDT) Triglycerides 236(H) <150 mg/dL [facility] Comment:Desirable Triglyceri de: less than 150 mg/dLBorderline High Triglyceride 150-199 mg/dLHigh Triglyceride: 200-499 mg/dLVery High Triglyceride: greater than or equal to 5OO mg/dL Cholesterol 287(H) <200 mg/dL [facility] Comment:Desirable Cholestero l: less than 200 mg/dLBorderline High Cholesterol: 200-239 mg/dLHigh Cholesterol: greater than 239 mg/dL LDL Cholesterol Calculated 183(H) <100 mg/dL [facility] Comment:Desirable LDL: less than 100 mg/dLNear Optimal/Above Optimal LDL: 110- 129 mg/dLBorderline High LDL: 130-159 mg/dLHigh LDL: 160-189 mg/dLVery High LDL: greater than or equal to 190 mg/dL HDL Cholesterol 57 >40 mg/dL [facility] Comment:Desirable HDL: great er than 40 mg/dL Note: This HDL assay may give artificially low results in patients with liver disease. Blood 01/19/2024 4:30 PM EDT 01/19/2024 5:31 PM EDT Chelsea Mejía MD LAB BLOOD ORDERABLES Final Resul t [facility] [address] [place] [phone] * Colonoscopy (08/18/2022) Colonoscopy Normal Normal Aneta Provider HEALTH MAINTENANCE Final Result from Last 3 Months or Most Recently Relevant to Health Maintenance Insurance [facility] H[facility] * Guarantor: Juan Quinn Account Type Relation to Patient Date of Phone Billing Address Personal/Family Self [address] [id number] Care Teams Aircraft Sheet Metal Mechanic Relationship Specialty Start Date End Date Chelsea Mejía MD [address] [place] [address] PCP - General Family Medicine 04/20/23
--- OUTSIDE RECORDS SUMMARY | 2024-05-20 10:44 | XMS_ITS | Encounter Summary ---
Author Organization [employer] Address [address] [place] [address] [address] [place] [address] Care Team Providers Care Embroidery Supervisor Name Role Phone Grady Helton MD Primary Care Provider UnaKemi Lin LAND SURVEYOR MANAGER Primary Care Provider [phone] Kemi Aguilar LAND SURVEYOR MANAGER Primary Care Provider [phone] Sandra Jaeger NP Primary Care Provider [phone] Chelsea Mejía MD Primary Care Provider [phone] Encounter Details Date Type Department Care Team (Late st Contact Info) Description 03/25/2022 Orders Only [facility] MED & PEDS [address] [place], [place] [phone] Ivanna Kulkarni LPN Social History Tobacco Use Types Packs/Day Years [...] 2:00 PM EST Office Visit [facility] MEDICINE [address] [place], [place] [phone] Juve Allison MD [address] [place], [place] [phone] documented as of this encounter Procedures Procedure Name Priority Date/Time Associated Diagnosis Comments HEMATOXYLIN AND EOSIN STAIN Routine 08/18/2022 8:17 AM EDT documented in this encounter Results * Hematoxylin and Eosin Stain (08/18/2022 8:17 AM EDT) 08/18/2022 8:17 AM EDT 08/18/2022 8:55 AM EDT [facility] LABS - 08/20/2022 10:23 AM EDT ----- ------- Name: Rubens Quinn ?Age/Sex: 52/M ? : 1970 Unit#: [id number] ?? Attend Dr: Dann Daniels ?Re08/18/22 ?Status: DEP SDC ? Location: HO.SSS ?Disch: ? ----- ------- SPEC : [id number] ? RECD: 08/18/22-854 ? STATUS: ??SOUT ? REQ NUM: [id number] ? NIDIA: 08/18/22 ? SUBM DR: Dann Daniels ? ENTERED: ??08/18/22 ?SP TYPE: Surgical ? OTHR DR: [facility] ? ORDERED: ??HE Stain/3, Gross Micro L4 ? Diagnosis ?? Colon, 50 cm, polypectomy: ??Tubular adenoma; negative for high-grade dysplasia or ?? carcinoma. ?Clinical History Pre-Op Dx: ??Screening Post-Op Dx: Polyp, diverticulosis, hemorrhoids ?Microscopic Description Microscopic sections reviewed. ? Material Received ?? Polyp colon 50 cm. ? Gross Description Received in formalin labeled ?colon polyp 50 cm? is a 0.5 cm in greatest dimension hyperemic and congested, fang-pink papular tissue fragment which is bisected and entirely submitted in a single cassette labeled A. CEDS Copies To: ?? [facility] ?? [address] ?? [place] [id number] ? Dann Daniels ?? [address] [place] [address] [address] ?? [place] [address] ?? [phone] ----- ------- Signed (signature on file) Luis Alberto Charlton MD 08/20/22 1023 ? ----- ------- ? END OF REPORT ? us [facility] External Provider LAB BLO OD ORDERABLES Final Result [facility] [address] [place] [address] [phone] documented in this encounter Visit Diagnoses Not on filedocumented in this encounter Care Teams Embroidery Supervisor Relationship Specialty Start Date End Date Grady Helton MD PCP - General Family Medicine 03/14/19 04/27/22 Kemi Aguilar FNP PCP - General Family Medicine 04/28/22 09/10/22 Kemi Aguilar FNP PCP - General Family Medicine 11/03/22 01/05/23 Sandra Jaeger NP [address] [place], [place] [phone] PCP - General Family Medicine 01/06/23 04/19/23 Chelsea Mejía MD [address] [place], [place] [phone] PCP - General Family Medicine 04/20/23 documented as of this encounter
[2024-05-20 11:21] LABS: Alanine Aminotransferase 59 U/L (0-40); Albumin Level 4.3 g/dL (3.5-5.0); Alkaline Phosphatase 69 U/L (39-117); Aspartate Amino Transferase 48 U/L (5-37); Bilirubin Direct 0.3 mg/dL (0.0-0.5); Bilirubin Total 0.6 mg/dL (0.0-1.0); TSH reflex Free T4 3.34 uIU/mL (0.32-4.0); Total Protein 7.9 g/dL (6.5-8.0)
[2024-05-20 11:24] LABS: Hepatitis A Antibody IgG Nonreactive (Nonreactive); ~Hepatitis A Antibody IgG 0.31 S/CO (0.00-0.99)
[2024-05-20 11:27] LABS: HBS Num1 1.05 mIU/mL (0-7.99); HBc Num1 0.12 S/CO (0.00-0.79); Hepatitis B Core Antibody Nonreactive (Nonreactive); Hepatitis B Surface Antigen Negative (Negative); ~HepC Num1 0.09 S/CO (0.00-0.79); ~Hepatitis B Surface Antibody NONREACTIVE (Nonreactive); ~Hepatitis C Antibody Nonreactive (Nonreactive)
== END 2024-05-20 09:58 | disposition home or self-care (01) ==
LOC: HO.LAB 09:57
PROVIDERS: PCP Family Medicine; Visit Provider Family Medicine
DX: E03.9 Hypothyroidism, unspecified (principal); R74.01 Elevation of levels of liver transaminase levels
CPT/HCPCS: 36415; 80076; 84443; 86704; 86706; 86708; 86803; 87340

== ENCOUNTER 2024-06-21 07:44 | Outpatient (REF) | payer BC, SELFPAY ==
--- NOTE | ~2024-06-21 | US_ITS ---
EXAMINATION: US ABDOMEN COMPLETE WITH LIVER ELASTOGRAPHY HISTORY: transaminitis. Asymptomatic. Likely fatty liver. TECHNIQUE: Real-time grayscale ultrasound imaging of the abdomen was performed and images were reviewed. COMPARISON: There are no prior studies for comparison. FINDINGS: Liver: The right lobe of the liver measures 14.8 cm in size. The left lobe of the liver measures 7.4 cm in size. The liver demonstrates increased echotexture, consistent with steatosis. No focal mass or intrahepatic biliary ductal dilatation is identified. There is normal hepatopedal flow in the portal vein. Ultrasound elastography of the liver was performed with 10 separate measurements of the liver parenchyma with the patient in the supine position. Measurements were obtained approximately 2 cm below Keysha's capsule and perpendicular to the capsule. Images are of satisfactory quality. The median shear wave velocity is 1.81 m/s. The interquartile range/median (IQR/median) is 0.10. Gallbladder and biliary tree: There are multiple calculi in the gallbladder. There is also the suggestion of ringdown artifact from the gallbladder wall compatible with adenomyomatosis. There is no sonographic Victoria sign. The common bile duct is normal in caliber measuring 3 mm. Kidneys: The right kidney measures 10.3 cm in length. The left kidney measures 10.2 cm in length. The kidneys are unremarkable, without evidence of masses, hydronephrosis, or calculi. Pancreas: The pancreas is obscured by bowel gas. Spleen: The spleen is normal in size and contour, measuring 8.8 cm in length. Abdominal aorta and inferior vena cava: The visualized portions of the abdominal aorta and inferior vena cava are normal in caliber. There is no free fluid in the abdomen. US/US abdomen comp w elastography IMPRESSION: Hepatic steatosis. 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 The median shear wave velocity in the liver is 1.81 m/s, corresponding to a median liver stiffness of 10.00 kPa. The IQR/median value is 0.10. This is indicative of a quality data set. Findings are indicative of a high elastography value suggestive of compensated advanced chronic liver disease. REFERENCE: Society of Radiologists in Ultrasound Liver Stiffness Thresholds (2020): LIVER STIFFNESS THRESHOLDS: *Shear wave velocity less than 1.3 m/s (Liver Stiffness equal or less than 5 kPa): High probability of being normal. *Shear wave velocity less than 1.7 m/s (Liver Stiffness less than 9 kPa): In the absence of other known clinical signs, rules out compensated advanced chronic liver disease. *Shear wave velocity between 1.7-2.1 m/s (Liver Stiffness 9-13 kPa): Suggestive of compensated advanced chronic liver disease but need further test for confirmation. *Shear wave velocity between 2.1-2.4 m/s (Liver Stiffness 13-17 kPa): Rules in compensated advanced chronic liver disease. *Shear wave velocity greater than 2.4 m/s (Liver Stiffness over 17 kPa): Suggestive of clinically significant portal hypertension. QUALITY OF DATA SET: *IQR/Median value equal or less than 0.15 implies a quality data set. *IQR/Median value over 0.15 implies a poor quality data set. SIGNIFICANT CHANGE FROM PRIOR EXAM: Significant change if liver stiffness measurement is 10% or greater from prior exam. OTHER CONSIDERATIONS: The stage of liver fibrosis may be overestimated in the setting of acute hepatitis, liver inflammation, elevated liver function tests, hepatic vascular congestion, obstructive cholestasis, non-fasting state, and infiltrative diseases such as amyloidosis and lymphoma. In some patients with NAFLD, the liver stiffness thresholds for compensated advanced chronic liver disease may be lower. In causes other than viral hepatitis and NAFLD, liver stiffness thresholds are not well established. Electronically signed by: Dann Kahn MD 06/21/2024 09:30 AM EDT
--- OUTSIDE RECORDS SUMMARY | 2024-06-21 07:48 | XMS_ITS | Encounter Summary ---
Author Organization [employer] Address [address] [facility] [address] [place] [address] Care Team Providers Care Information And Referral Director Name Role Phone Chelsea Mejía MD Primary Care Provider [phone] Encounter Details Date Type Department Care Team (Late st Contact Info) Description 01/22/[address] [facility] MEDICINE [address] [place] [address] Sadaf Gerardo MA Social History Tobacco Use [...] as of this encounter Plan of Treatment Not on file documented as of this encounter Procedures Procedure Name Priority Date/Time Associated Diagnosis Comments COLONOSCOPY Routine 08/18/2022 documented in this encounter Results * Colonoscopy (08/18/2022) Colonoscopy Normal Normal us Historical Provider HEALTH MAINTENANCE Final Result documented in this encounter Visit Diagnoses Not on filedocumented in this encounter Care Teams Information And Referral Director Relationship Specialty Start Date End Date Chelsea Mejía MD [address] [place] [address] PCP - General Family Medicine 04/20/23 documented as of this encounter
--- OUTSIDE RECORDS SUMMARY | 2024-06-21 07:48 | XMS_ITS | Encounter Summary ---
Author Organization [employer] Address [address] [place] [address] [address] [place] [address] Care Team Providers Care Head Cleaning Porter Name Role Phone Grady Helton MD Primary Care Provider Unava Kemi Garcia Primary Care Provider [phone] Kemi Aguilar Primary Care Provider [phone] Sandra Jaeger NP Primary Care Provider [phone] Chelsea Mejía MD Primary Care Provider [phone] Reason for Visit * Reason Comments Med Refill Encounter Details Date Type Department Care Team (Late st Contact Info) Description 04/27/2022 Refill [facility] MEDICINE [address] [place] [address] Kemi Aguilar FNP [address] [place] [address] Dept [place] [address] Hypothyroidism, unspecified type Social History Tobacco Use [...] on file documented as of this encounter Visit Diagnoses Diagnosis Hypothyroidism, unspecified type documented in this encounter Care Teams Head Cleaning Porter Relationship Specialty Start Date End Date Grady Helton MD PCP - General Family Medicine 03/14/19 04/27/22 Kemi Aguilar FNP PCP - General Family Medicine 04/28/22 09/10/22 Kemi Aguilar FNP PCP - General Family Medicine 11/03/22 01/05/23 Sandra Jaeger NP [address] [place] [address] PCP - General Family Medicine 01/06/23 04/19/23 Chelsea Mejía MD [address] [place] [address] PCP - General Family Medicine 04/20/23 documented as of this encounter
--- OUTSIDE RECORDS SUMMARY | 2024-06-21 07:48 | XMS_ITS | Encounter Summary ---
Author Organization [employer] Address [address] [place] [address] Care Team Providers Care Stock Tracer Name Role Phone Grady Helton MD Primary Care Provider UnaKemi Lin PRINT CUTTER Primary Care Provider [phone] Kemi Aguilar PRINT CUTTER Primary Care Provider [phone] Sandra Jaeger NP Primary Care Provider [phone] Chelsea Mejía MD Primary Care Provider [phone] Encounter Details Date Type Department Care Team (Late st Contact Info) Description 03/25/2022 Orders Only [facility] MED & PEDS [address] [place] [address] Ivanna Kulkarni LPN Social History Tobacco Use [...] 8:17 AM EDT 08/18/2022 8:55 AM EDT [facility]S - 08/20/2022 10:23 AM EDT ----- ------- Name: Rubens Quinn ?Age/Sex: 52/M ? : 1970 Unit#: [id number] ?? Attend Dr: Dann Daniels ?Re08/18/22 ?Status: DEP SDC ? Location: HO.SSS ?Disch: ? ----- ------- SPEC : [id number] ? RECD: 08/18/22 ? STATUS: ??SOUT ? REQ NUM: [id number] ? NIDIA: 08/18/22 ? SUBM DR: Dann Daniels ? ENTERED: ??08/18/22 ?SP TYPE: Surgical ? OTHR DR: [facility] ? ORDERED: ??HE Stain/3, Gross Micro [...] cassette labeled A. CEDS Copies To: ?? [facility] ?? [address] ?? [place] [address] ? Dann Daniels ?? [address] [place] [address] [address] ?? [place] [address] ?? [phone] ----- ------- Signed (signature on file) Luis Alberto Charlton MD 08/20/22 1023 ? ----- ------- ? END OF REPORT ? us [facility] External Provider LAB BLO OD ORDERABLES Final Result [facility] [address] [place] [address] [phone] documented in this encounter Visit Diagnoses Not on filedocumented in this encounter Care Teams Stock Tracer Relationship Specialty Start Date End Date Grady Helton MD PCP - General Family Medicine 03/14/19 04/27/22 Kemi Aguilar FNP PCP - General Family Medicine 04/28/22 09/10/22 Kemi Aguilar FNP PCP - General Family Medicine 11/03/22 01/05/23 Sandra Jaeger NP [address] [place] [phone] PCP - General Family Medicine 01/06/23 04/19/23 Chelsea Mejía MD [address] [place] [phone] PCP - General Family Medicine 04/20/23 documented as of this encounter
--- OUTSIDE RECORDS SUMMARY | 2024-06-21 07:48 | XMS_ITS | Encounter Summary ---
Author Organization [employer] Address [address] [facility] 7[address] [place] [address] Care Team Providers Care Hot Strip Mill Inspector Name Role Phone Chelsea Mejía MD Primary Care Provider [phone] Encounter Details Date Type Department Care Team (Latest Contact Info) Description 06/03/2024 Travel Social History Tobacco Use Types Packs/Day [...] documented as of this encounter Care Teams Hot Strip Mill Inspector Relationship Specialty Start Date End Date Chelsea Mejía MD [address] [place] [address] PCP - General Family Medicine 04/20/23 documented as of this encounter
--- OUTSIDE RECORDS SUMMARY | 2024-06-21 07:48 | XMS_ITS | Encounter Summary ---
Author Organization [employer] Address [address] [facility] 7t [place] [address] Care Team Providers Care Bag Shop Worker Name Role Phone Chelsea Mejía MD Primary Care Provider [phone] Encounter Details Date Type Department Care Team (Latest Contact Info) Description 06/03/2024 2:00 PM EST Office Visit [facility] MEDICINE [address] [place] [address] Juve Allison MD [address] [place], [place] [phone] Inflamed skin tag (Primary Dx); Post-inflammatory hyperpigmentation Social History Tobacco Use Types Packs/Day Years [...] Sign Reading Time Taken Comments Blood Pressure 138/80 06/03/2024 2:04 PM EST Pulse 76 06/03/2024 2:04 PM EST Temperature 36.2 ??C (97.1 ??F) 06/03/2024 2:04 PM ES T Respiratory Rate 20 06/03/2024 2:04 PM EST Oxygen Saturation - - Inhaled Oxygen Concentration - - Weight 95.7 kg (211 lb) 06/03/2024 2:04 PM EST Height - - Body Mass Index 35.11 05/17/2024 2:25 PM EST documented in this encounter Progress Notes * Abdelrahman Phillips MA - 06/03/2024 2:00 PM EST * Juve Allison MD - 06/03/2024 2:00 PM EST Subjective Patient ID: Rubens Mahoney is a 54 y.o. male who presents for No chief complaint on file.. HPI 54 yr old man with some skin eruptions on L axilla Review of Systems Constitutional: Negative for diaphoresis, fatigue and fever. HENT: Negative for ear discharge, ear pain, facial swelling and hearing loss. Respiratory: Negative for cough, choking, chest tightness and shortness of breath. Cardiovascular: Negative for chest pain and leg swelling. Gastrointestinal: Negative for abdominal distention, abdominal pain and anal bleeding. Endocrine: Negative for cold intolerance and heat intolerance. Genitourinary: Negative for enuresis, flank pain and frequency. Musculoskeletal: Negative for arthralgias, back pain and gait problem. Neurological: Negative for dizziness, facial asymmetry and headaches. Psychiatric/Behavioral: Negative for agitation, behavioral problems and confusion. Objective Physical Exam Constitutional: Appearance: Normal appearance. HENT: Head: Normocephalic. Nose: Nose normal. Eyes: Extraocular Movements: Extraocular movements intact. Pulmonary: Effort: Pulmonary effort is normal. Musculoskeletal: Cervical back: Normal range of motion and neck supple. Skin: General: Skin is warm and dry. Comments: 3x3 cm hyperpigmented macule on L post leg pedunculated papilloma on L axilla Neurological: Mental Status: He is alert. Mental status is at baseline. Assessment/Plan Diagnoses and all orders for this visit: Inflamed skin tag Post-inflammatory hyperpigmentation Reviewed condition with patient Advised on laser therapy for hyperpigmented patch documented in this encounter Plan of Treatment Not on file documented as of this encounter Visit Diagnoses Diagnosis Inflamed skin tag- Primary Post-inflammatory hyperpigmentation Dyschromia, unspecified documented in this encounter Additional Health Concerns Assessment Noted Time PHQ-9 Depression Total Score: 0 05/17/19 25 3:50 PM EST documented as of this encounter Care Teams Bag Shop Worker Relationship Specialty Start Date End Date Chelsea Mejía MD [address] [place] [id number] PCP - General Family Medicine 04/20/23 documented as of this encounter
--- OUTSIDE RECORDS SUMMARY | 2024-06-21 07:48 | XMS_ITS | Encounter Summary ---
Author Organization [employer] Address [address] [place] [address] Care Team Providers Care Waiter/Waitress Name Role Phone Chelsea Mejía MD Primary Care Provider [phone] Encounter Details Date Type Department Care Team (Late st Contact Info) Description 05/17/2024 1:45 PM EST Office Visit [facility] [address] [place] [address] Chelsea Mejía MD [address] [place] [address] Routine general medical examination at a health care facility (Primary Dx); Essential hypertension; Acquired hypothyroidism; Tubular adenoma; Dyslipidemia; Erectile dysfunction, unspecified erectile dysfunction type; Varicose veins of lower extremity, unspecified laterality, unspecified whether complicated; Daytime somnolence; Obesity (BMI 35.0-39.9 without comorbidity); Transaminitis; Diverticulosis of colon Social History Tobacco Use Types Packs/Day Years [...] Sign Reading Time Taken Comments Blood Pressure 153/81 05/17/2024 2:03 PM EST Pulse 85 05/17/2024 2:03 PM EST Temperature 36.3 ??C (97.3 ??F) 05/17/2024 2:03 PM ES T Respiratory Rate 19 05/17/2024 2:03 PM EST Oxygen Saturation 97% 05/17/2024 2:03 PM EST Inhaled Oxygen Concentration - - Weight 96.3 kg (212 lb 6.4 oz) 05/17/2024 2:03 P M EST Height 165.1 cm (5' 5 ) 05/17/2024 2:25 PM EST Body Mass Index 35.35 05/17/2024 2:03 PM EST documented in this encounter Progress Notes * Chelsea Mejía MD - 05/17/2024 1:45 PM EST Rubens Mahoney is a 54 y.o. male who has hypothyroidism, hypertension and dyslipidemia, and patient presents for physical exam. Subjective Our last encounter was on 01/19/2024. Discussed about erectile dysfunction, skin lesions, obesity /GLP-1RA, transaminitis, and elevated BP. Rx semaglutide. Referred to derm clinic. Ordered lab. Today: Pt reports he is still working at [employer]. Patient has not received appointment with dermatology clinic yet. During this visit, we contacted [facility] personnel, and patient was given an appointment on on June 032024 Pt notes he has lost weight and has been exercising regularly. Pt drinks alcoholic beverage on the weekends and prefers cocktails to beer. He states beer makes his abdominal bloating sensation worse,especially with Wegovy. He is impressed with the effect of Wegovy on alcohol intake. He states it reduces craving for both alcohol and fods. Pt requested medication to assist him with his erectile dysfunction. Pt sees a dentist that was in the [employer] but has since moved locations. Past medical history: Patient Active Problem List Diagnosis Date Noted Erectile dysfunction 01/19/2024 Dyslipidemia 01/19/2024 Diverticulosis of colon 04/20/2023 Tubular adenoma 04/20/2023 Hypothyroidism 09/03/2017 Essential hypertension 08/20/2017 Obesity 08/20/2017 Varicose veins of lower extremity 08/20/2017 Daytime somnolence 08/20/2017 Past surgical history: History reviewed. No pertinent surgical history. Hospitalizations / major illness: Medications: Current Outpatient Medications on File Prior to Visit Medication Sig Dispense Refill levothyroxine (Synthroid, Levoxyl) 50 MCG tablet TAKE 1 TABLET(50 MCG) BY MOUTH IN THE MORNING 90 tablet 1 losartan (Cozaar) 25 MG tablet Take 1 tablet (25 mg) by mouth Once per day. 90 tablet 3 rosuvastatin (Crestor) 5 MG tablet Take 1 tablet (5 mg) by mouth at bedtime. 30 tablet 11 [DISCONTINUED] Semaglutide-Weight Management (Wegovy) 0.25 MG/0.5ML solution auto-injector Inject 0.25 mg under the skin 1 (one) time per week. 2 mL 1 [DISCONTINUED] Semaglutide-Weight Management (Wegovy) 0.5 MG/0.5ML solution auto-injector INJECT ONE PEN (=0.5 MG) SUBCUTANEOUSLY ONCE A WEEK 2 mL 0 No current facility-administered medications on file prior to visit. Allergy: No Known Allergies Family history: No family history on file. 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 Daniels. Tubular adenoma Prostate: Normal PSA in Dec 2023 [facility] Proxy MOLST Review of Systems Constitutional: Negative for activity change, appetite change and fever. Respiratory: Negative for shortness of breath. Cardiovascular: Negative for chest pain. Objective Vitals: 05/17/24 1403 05/17/24 1425 BP: (!) 153/81 (!) 149/84 Pulse: 85 Resp: 19 Temp: 97.3 ??F (36.3 ??C) TempSrc: Temporal SpO2: 97% Weight: 212 lb 6.4 oz (96.3 kg) Physical Exam Constitutional: General: He is not in acute distress. Appearance: Normal appearance. He is not ill-appearing. HENT: Head: Normocephalic and atraumatic. Mouth/Throat: Mouth: Mucous membranes are moist. Eyes: Extraocular Movements: Extraocular movements intact. Pupils: Pupils are equal, round, and reactive to light. Cardiovascular: Rate and Rhythm: Normal rate and regular rhythm. Heart sounds: No murmur heard. Pulmonary: Effort: Pulmonary effort is normal. No respiratory distress. Breath sounds: Normal breath sounds. No wheezing or rhonchi. Skin: General: Skin is warm. Neurological: Mental Status: He is alert. Mental status is at baseline. Psychiatric: Mood and Affect: Mood normal. Results: Lab Results Component Value Date NA 141 01/19/2024 K 4.0 01/19/2024 CL 107 01/19/2024 CO2 25 01/19/2024 BUN 24 (H) 01/19/2024 CREATININE 0.94 01/19/2024 EGFR >60 01/19/2024 GLUCOSE 108 01/19/2024 TOTALBILIRUB 0.6 01/19/2024 AST 53 (H) 01/19/2024 ALT 54 (H) 01/19/2024 TOTPROTEIN 7.9 01/19/2024 ALB 4.5 01/19/2024 ALP 75 01/19/2024 Lab Results Component Value Date TRIG 236 (H) 01/19/2024 CHOL 287 (H) 01/19/2024 LDLCHOLCAL 183 (H) 01/19/2024 HDL 57 01/19/2024 Lab Results Component Value Date HGBA1C 5.6 2023 MICROALBUR 6.0 01/19/2024 CREATUR 139.05 01/19/2024 MICROALBCREU 4.3 01/19/2024 Lab Results Component Value Date WBC 6.0 01/19/2024 HGB 15.8 01/19/2024 HCT 47.2 01/19/2024 PLT 222 01/19/2024 MCV 86.0 01/19/2024 The 10-year ASCVD risk score (Mickie DE LEON, et al., 2019) is: 9% Values used to calculate the score: Age: 54 years Sex: Male Is Non- : No Diabetic: No Tobacco smoker: No Systolic Blood Pressure: 149 mmHg Is BP treated: Yes HDL Cholesterol: 57 mg/dL Total Cholesterol: 287 mg/dL Lab Results Component Value Date TSH 3.34 05/20/2024 TSH 5.35 (H) 01/19/2024 TSH 5.70 (H) 2023 FREET4 0.77 01/19/2024 FREET4 0.91 2023 FIB-4 Calculation: 1.66 at 01/19/2024 4:30 PM Calculated from: SGOT/AST: 53 U/L at 01/19/2024 4:30 PM SGPT/ALT: 54 U/L at 01/19/2024 4:30 PM Platelets: 222 X10*3/uL at 01/19/2024 4:30 PM Age: 53 years Screening and Health Care Maintenance: PHQ-2/9 Score: Patient Health Questionnaire-9 Score: 0 (05/17/2024 3:50 PM) Patient Health Questionnaire-2 Score: 0 (05/17/2024 3:50 PM) Thoughts that you would be better off or hurting yourself in some way: Not at all (05/17/2024 3:50 PM) MAYANK-7 Score: MAYANK-7 Total Score: 2 (05/17/2024 3:50 PM) Health Maintenance Due Topic Date Due HIV Screening Never done Family Planning (PISQ) Never done Pneumococcal Vaccine: 50+ Years (1 of 1 - PCV) Never done Zoster Vaccines (1 of 2) Never done Hepatitis B Vaccines (2 of 3 - 19+ 3-dose series) 02/16/2024 Assessment/Plan Problem List Items Addressed This Visit Diverticulosis of colon Essential hypertension -Goal BP < 140/90 per JNC-8 and < 130/80 per ACC/AHA guideline (Treatment threshold >= 140/90) -BP not at goal -Continue working on lifestyle modifications -Recommended self-monitoring BP. -Continue losartan 25 mg daily -Treatment Hx: Prescribed hydrochlorothiazide previously, but never took it -consider sleep study -Follow up in 3 mo, sooner if any problem arises Hypothyroidism - current replacement levothyroxine 50 mcg daily - check thyroid function test and adjust accordingly - Ordered TSH with Reflex to Free T4 05/17/24 Relevant Orders TSH with Reflex to Free T4 (Completed) Obesity - Will increase semaglutide dose to 1 mg. If pt has no side effects after 4 doses and no further weight loss, we will increase his the dose to 2 mg. 05/17/24 Varicose veins of lower extremity - s/p phlebectomy by [facility] vascular specialist in 2019 Daytime somnolence - loud snoring - consider evaluating with sleep study - since he started GLP1RA, his symptoms may improve Tubular adenoma - colonoscopy on 08/18/[address] Daniels - lifestyle modifications to prevent colon cancer Erectile dysfunction - normal testosterone level and PSA - optimize chronic disease management - will prescribe tadalafil Dyslipidemia Currently not on medication since 10-year ASCVD risk is 6.2% Continue working on lifestyle modifications Other Visit Diagnoses Routine general medical examination at a health care facility - Primary Ordered Hepatic Function Panel 05/17/24 Transaminitis Relevant Orders Hepatic Function Panel (Completed) Hepatitis C Antibody with Reflex to HCV, RNA, Quantitative, Real-Time PCR (Completed) Hepatitis B Surface Antibody, Qualitative (Completed) Hepatitis B Core Antibody, Total (Completed) Hepatitis B surface antigen, EIA (Completed) Hepatitis A Antibody, Total (Completed) No Known Allergies Current Outpatient Medications Medication Instructions levothyroxine (Synthroid, Levoxyl) 50 MCG tablet TAKE 1 TABLET(50 MCG) BY MOUTH IN THE MORNING losartan (COZAAR) 25 mg, Oral, Daily rosuvastatin (CRESTOR) 5 mg, Oral, Nightly Semaglutide-Weight Management 1 mg, Subcutaneous, Weekly tadalafil (Cialis) 10 MG tablet Take 1 tablet by mouth >=30 minutes prior to anticipated sexual activity; do not take more than once daily. Follow-up: 4 months for hypertension or sooner if any problem arises. Scribe Attestation: I, Ivanna Lowry, am serving as a scribe to document services personally performed by Chelsea Mejía MD, based on the patient's response to questions by provider and provides statements to me. documented in this encounter Miscellaneous Notes * [...] of lower extremity - s/p phlebectomy by [facility] vascular specialist in 2019 * Assessment & Plan Note - Ivanna Lowry MA - 05/17/2024 2:56 PM ESTAssociated Problem(s): Daytime somnolence - loud snoring - consider evaluating with sleep study - since he started GLP1RA, his symptoms may improve * Assessment & Plan Note - Ivanna Lowry MA - 05/17/2024 2:56 PM ESTAssociated Problem(s): Essential hypertension -Goal BP < 140/90 per JNC-8 and < 130/80 per ACC/AHA guideline (Treatment threshold >= 140/90) -BP not at goal -Continue working on lifestyle modifications -Recommended self-monitoring BP. -Continue losartan 25 mg daily -Treatment Hx: Prescribed hydrochlorothiazide previously, but never took it -consider sleep study -Follow up in 3 mo, sooner if any problem arises * Assessment & Plan Note - Ivanna Lowry MA - 05/17/2024 2:56 PM ESTAssociated Problem(s): Erectile dysfunction - normal testosterone level and PSA - optimize chronic disease management - will prescribe tadalafil * Assessment & Plan Note - Ivanna Lowry MA - 05/17/2024 2:56 PM ESTAssociated Problem(s): Hypothyroidism - current replacement levothyroxine 50 mcg daily - check thyroid function test and adjust accordingly - Ordered TSH with Reflex to Free T4 05/17/24 * Assessment & Plan Note - Ivanna Lowry MA - 05/17/2024 2:51 PM ESTAssociated Problem(s): Obesity - Will increase semaglutide dose to 1 mg. If pt has no side effects after 4 doses and no further weight loss, we will increase his the dose to 2 mg. 05/17/24 documented in this encounter Plan of Treatment Not on file documented as of this encounter Procedures Procedure Name Priority Date/Time Associated Diagnosis Comments TSH W/REFLEX TO FT4 Routine 05/20/2024 1 0:18 AM EST Acquired hypothyroidism HEPATITIS C AB W/REFL TO HCV RNA, QN, PCR Routine 05/20/2024 10:18 AM EST Transaminitis HEPATITIS A ANTIBODY, TOTAL Routine 05/20/2024 10:18 AM EST Transaminitis HEPATITIS B SURFACE ANTIGEN, EIA Routine 05/20/2024 10:18 AM EST Transaminitis HEPATITIS B CORE AB TOTAL Routine 05/20/2024 10:18 AM EST Transaminitis HEPATITIS B SURFACE ANTIBODY, QUALITATIVE Routine 05/20/2024 10:18 AM EST Transaminitis HEPATIC FUNCTION PANEL Routine 05/20/2024 10:18 AM EST Transaminitis documented in this encounter Results * Hepatitis A Antibody, Total (05/20/2024 10:18 AM EST) Hepatitis A Antibody IgG Nonreactive Nonreactive [facility] Blood Venous blood specimen / Unknown 05/20/2024 10:18 AM EST 05/20/2024 10:18 AM EST us Chelsea Mejía MD LAB BLOOD ORDERABLES Final Resul t [facility] [address] [place] [phone] [phone] * Hepatitis B surface antigen, EIA (05/20/2024 10:18 AM EST) Hepatitis B Surface Ag Negative Negative [facility] Blood Venous blood specimen / Unknown 05/20/2024 10:18 AM EST 05/20/2024 10:18 AM EST us Chelsea Mejía MD LAB BLOOD ORDERABLES Final Resul t Performing Organization Address [facility] Co de Phone Number [facility] [address] [place] [phone] * Hepatitis B Core Antibody, Total (05/20/2024 10:18 AM EST) Hepatitis B Core Antibody Nonreactive Nonreactive [facility] Blood Venous blood specimen / Unknown 05/20/2024 10:18 AM EST 05/20/2024 10:18 AM EST us Chelsea Mejía MD LAB BLOOD ORDERABLES Final Resul t Performing Organization Address [facility] Co de Phone Number [facility] [address] [place] [phone] * Hepatitis B Surface Antibody, Qualitative (05/20/2024 10:18 AM EST) ~Hepatitis B Surface Antibody NONREACTIVE Nonreactive [facility] Comment:Nonreactive: < 8.00 mIU/mL Blood Venous blood specimen / Unknown 05/20/2024 10:18 AM EST 05/20/2024 10:18 AM EST Chelsea Mejía MD LAB BLOOD ORDERABLES Final Resul t Performing Organization Address [facility] de Phone Number [facility] [address] [place] [phone] * Hepatitis C Antibody with Reflex to HCV, RNA, Quantitative, Real-Time PCR (05/20/2024 10:18 AM EST) Hepatitis C Antibody Nonreactive Nonreactive [facility] Comment:Antibodies to HCV no t detected; does not exclude early acuteHCV infection. Blood Venous blood specimen / Unknown 05/20/2024 10:18 AM EST 05/20/2024 10:18 AM EST us Chelsea Mejía MD LAB BLOOD ORDERABLES Final Resul t Performing Organization Address [facility] Co de Phone Number [facility] [address] [place] [phone] * (ABNORMAL) Hepatic Function Panel (05/20/2024 10:18 AM EST) Bilirubin, Total 0.6 0.0 - 1.0 mg/dL [facility] Bilirubin, Direct 0.3 0.0 - 0.5 mg/dL [facility] Aspartate Amino Transferase 48(H) 5 - 37 U/L [facility] Alanine Aminotransferase 59(H) 0 - 40 U/L [facility] Total Protein 7.9 6.5 - 8.0 g/dL [facility] Albumin Level 4.3 3.5 - 5.0 g/dL [facility] Alkaline Phosphatase 69 39 - 117 U/L [facility] Blood Venous blood specimen / Unknown 05/20/2024 10:18 AM EST 05/20/2024 10:18 AM EST us Chelsea Mejía MD LAB BLOOD ORDERABLES Final Resul t Performing Organization Address [facility] Co de Phone Number [facility] [address] [place] [phone] * TSH with Reflex to Free T4 (05/20/2024 10:18 AM EST) TSH reflex Free T4 3.34 0.32 - 4.0 uIU/mL [facility] Blood 05/20/2024 10:1 8 AM EST 05/20/2024 10:18 AM EST Chelsea Mejía MD LAB BLOOD ORDERABLES Final Resul t [facility] [address] [place] [phone] documented in this encounter Visit Diagnoses Diagnosis Routine general [...] of transaminase or lactic acid dehydrogenase (LDH) Diverticulosis of colon Diverticulosis of colon (without mention of hemorrhage) documented in this encounter Additional Health Concerns Assessment Noted Time PHQ-9 Depression Total Score: 0 05/17/19 25 3:50 PM EST documented as of this encounter Care Teams Waiter/Waitress Relationship Specialty Start Date End Date Chelsea Meíja MD [address] [place] [phone] PCP - General Family Medicine 04/20/23 documented as of this encounter
--- OUTSIDE RECORDS SUMMARY | 2024-06-21 07:48 | XMS_ITS | Clinical Summary ---
Author Organization [employer] Address [address] [facility] 7[address] [place] [address] Care Team Providers Care Sheet Rock Applicator Name Role Phone Chelsea Mejía MD Primary Care Provider [phone] Allergies No known active allergies Medications levothyroxine (Synthroid, Levoxyl) 50 MCG tabletIndication s:Hypothyroidism , unspecified type TAKE 1 TABLET(50 MCG) BY MOUTH IN THE MORNING 90 tablet 1 4 Active losartan (Cozaar) 25 MG tablet Take 1 tablet (25 mg) by mouth Once per day. 90 tablet 3 4 Active rosuvastatin (Crestor) 5 MG tablet Take 1 tablet (5 mg) by mouth at bedtime. 30 tablet 11 4 02/04/20 25 Active Semaglutide-Weig ht Management 1 MG/0.5ML solution auto-injector Inject 0.5 mL (1 mg) under the skin 1 (one) time per week. 2 mL 11 5 Active tadalafil (Cialis) 10 MG tablet Take 1 tablet by mouth >=30 minutes prior to anticipated sexual activity; do not take more than once daily. 10 tablet 3 5 Active Active Problems Problem Noted Date Diagnosed Date Erectile dysfunction 01/19/2024 Assessment & Plan (05/22/2024 1:14 PM EST): - normal testosterone level and PSA - optimize chronic disease management - will prescribe tadalafil Assessment & Plan (01/19/2024 6:25 PM EDT): [...] test Essential hypertension 08/20/2017 Assessment & Plan (05/22/2024 1:14 PM EST): -Goal BP < 140/90 per [...] mo, sooner if any problem arises Obesity 08/20/2017 04/20/2023 Assessment & Plan (05/22/2024 1:17 PM EST): - Will increase semaglutide dose to 1 mg. If pt has no side effects after 4 doses and no further weight loss, we will increase his the dose to 2 mg. 05/17/24 Assessment & Plan (01/19/2024 6:17 PM EDT): - will try GLP1RA Varicose veins of lower extremity 08/20/2017 04/20/2023 Assessment & Plan (05/17/2024 2:57 PM EST): - s/p phlebectomy by [facility] vascular specialist in 2019 Assessment & Plan (04/20/2023 9:42 PM EST): - s/p phlebectomy by [facility] vascular specialist in 2019 Daytime somnolence 08/20/2017 04/20/2023 Assessment & Plan (05/22/2024 1:13 PM EST): - loud snoring - consider evaluating with sleep study - since he started GLP1RA, his symptoms may improve Assessment & Plan (04/20/2023 6:09 PM EST): - loud snoring - consider evaluating with sleep study Encounters Date Type Department Care Team Description 06/03/2024 2:00 PM EST Office Visit [address] [id number] Juve Allison MD Inflamed skin tag (Primary Dx); Post-inflammatory hyperpigmentation 06/03/2024 Travel 05/20/[address] [id number] Carlotta Altamirano RN Results 05/20/2024 Orders Only [address] [id number] Chelsea Mejía MD Transaminitis (Primary Dx) 05/17/2024 1:45 PM EST Office Visit [address] [id number] Chelsea Mejía MD Routine general medical examination at a health care facility (Primary Dx); Essential hypertension; Acquired hypothyroidism; Tubular adenoma; Dyslipidemia; Erectile dysfunction, unspecified erectile dysfunction type; Varicose veins of lower extremity, unspecified laterality, unspecified whether complicated; Daytime somnolence; Obesity (BMI 35.0-39.9 without comorbidity); Transaminitis; Diverticulosis of colon 05/17/2024 Travel 05/12/[address] [id number] Sadaf Gerardo MA chart prep 05/02/2024 Patient Outreach [address] [id number] Chelsea Mejía MD Pre-visit Planning (SDOH Screening negative and Tobacco screening negative) 04/14/[address] [address] Chelsea Mejía MD 04/14/2024 Telephone [facility] [address] [place] [id number] Sadaf Gerardo MA april recall from Last [...] 20 06/03/2024 2:04 PM EST Oxygen Saturation 97% 05/17/2024 2:03 PM EST Inhaled Oxygen Concentration - - Weight 95.7 kg (211 lb) 06/03/2024 2:04 PM EST Height 165.1 cm (5' 5 ) 05/17/2024 2:25 PM EST Body Mass Index 35.11 05/17/2024 2:25 PM EST Plan of Treatment Health Maintenance Due Date Last Done Comments CT Colonography 1972 FIT DNA/Cologuard 1972 FIT 1972 FOBT 1970 HIV Screening 1970 Sigmoidoscopy 1970 Family Planning (PISQ) 1987 Pneumococcal Vaccine: 50+ Years (1 of 1 - PCV) 2022 Zoster Vaccines (1 of 2) 2022 Hepatitis B Vaccines (2 of 3 - 19+ 3-dose series) 02/16/2024 01/19/2024 SDOH Screening 05/02/2025 05/02/2024 Alcohol/Substance Use Screening 05/17/2025 05/17/2024 Depression Screening 05/17/2025 05/17/2024, 05/17/19 25 Tobacco Screening 05/22/2025 05/22/2024 DTaP/Tdap/Td Vaccines (2 - Td or Tdap) 08/21/2027 08/20/2017 Lipid Panel 01/18/2029 01/19/2024, 2023 Colonoscopy 08/18/2032 08/18/2022 Colorectal Cancer Screening 08/18/2032 RSV Patients and Patients Aged 60 years or older (1 - 1-dose 75+ series) 2047 COVID-19 Vaccine Completed 01/19/2024, , 02/27/2021, Additional history exists Influenza Vaccine Completed 01/19/2024, , 01/20/2022, Additional history exists Hepatitis C Screening Completed 05/20/2024 HIB Vaccines Aged Out No longer eligi [...] Procedure Name Priority Date/Time Associated Diagnosis Comments HEPATITIS A ANTIBODY, TOTAL Routine 05/20/2024 10:18 AM EST Transaminitis HEPATITIS B SURFACE ANTIGEN, EIA Routine 05/20/2024 10:18 AM EST Transaminitis HEPATITIS B CORE AB TOTAL Routine 05/20/2024 10:18 AM EST Transaminitis HEPATITIS B SURFACE ANTIBODY, QUALITATIVE Routine 05/20/2024 10:18 AM EST Transaminitis HEPATITIS C AB W/REFL TO HCV RNA, QN, PCR Routine 05/20/2024 10:18 AM EST Transaminitis HEPATIC FUNCTION PANEL Routine 05/20/2024 10:18 AM EST Transaminitis TSH W/REFLEX TO FT4 Routine 05/20/2024 1 0:18 AM EST Acquired hypothyroidism LIPID PANEL WITH REFLEX TO DIRECT LDL Routine 01/19/2024 4:30 PM EDT Dyslipidemia COLONOSCOPY Routine 08/18/2022 from Last 3 Months or Most Recently Relevant to Health Maintenance Results * TSH with Reflex to Free T4 (05/20/2024 10:18 AM EST) TSH reflex Free T4 3.34 0.32 - 4.0 uIU/mL [facility] Blood 05/20/2024 10:1 8 AM EST 05/20/2024 10:18 AM EST us Cehlsea Mejía MD LAB BLOOD ORDERABLES Final Resul t Performing Organization Address [facility] Co de Phone Number [facility] [address] [place] [phone] * Hepatitis C Antibody with Reflex to HCV, RNA, Quantitative, Real-Time PCR (05/20/2024 10:18 AM EST) Hepatitis C Antibody Nonreactive Nonreactive [facility] Comment:Antibodies to HCV no t detected; does not exclude early acuteHCV infection. Blood Venous blood specimen / Unknown 05/20/2024 10:18 AM EST 05/20/2024 10:18 AM EST us Cehlsea Mejía MD LAB BLOOD ORDERABLES Final Resul t Performing Organization Address [facility] Co de Phone Number [facility] [address] [place] [phone] * Hepatitis A Antibody, Total (05/20/2024 10:18 AM EST) Hepatitis A Antibody IgG Nonreactive Nonreactive [facility] Blood Venous blood specimen / Unknown 05/20/2024 10:18 AM EST 05/20/2024 10:18 AM EST Chelsea Mejía MD LAB BLOOD ORDERABLES Final Resul t Performing Organization Address City/[facility] Co de Phone Number [facility] [address] [place] [address] [phone] * Hepatitis B surface antigen, EIA (05/20/2024 10:18 AM EST) Hepatitis B Surface Ag Negative Negative [facility] Blood Venous blood specimen / Unknown 05/20/2024 10:18 AM EST 05/20/2024 10:18 AM EST us Chelsea Mejía MD LAB BLOOD ORDERABLES Final Resul t Performing Organization Address City/[facility]/ZIP Co de Phone Number [facility] [address] [place] [phone] * Hepatitis B Core Antibody, Total (05/20/2024 10:18 AM EST) Hepatitis B Core Antibody Nonreactive Nonreactive [facility] Blood Venous blood specimen / Unknown 05/20/2024 10:18 AM EST 05/20/2024 10:18 AM EST us Chelsea Mejía MD LAB BLOOD ORDERABLES Final Resul t Performing Organization Address [facility] Co de Phone Number [facility] [address] [place] [phone] * Hepatitis B Surface Antibody, Qualitative (05/20/2024 10:18 AM EST) ~Hepatitis B Surface Antibody NONREACTIVE Nonreactive [facility] Comment:Nonreactive: < 8.00 mIU/mL Blood Venous blood specimen / Unknown 05/20/2024 10:18 AM EST 05/20/2024 10:18 AM EST Chelsea Mejía MD LAB BLOOD ORDERABLES Final Resul t Performing Organization Address City/[facility]/ZIP Co de Phone Number [facility] [address] [place] [phone] * (ABNORMAL) Hepatic Function Panel (05/20/2024 10:18 AM EST) Bilirubin, Total 0.6 0.0 - 1.0 mg/dL [facility] Bilirubin, Direct 0.3 0.0 - 0.5 mg/dL [facility] Aspartate Amino Transferase 48(H) 5 - 37 U/L [facility] Alanine Aminotransferase 59(H) 0 - 40 U/L [facility] Total Protein 7.9 6.5 - 8.0 g/dL [facility] Albumin Level 4.3 3.5 - 5.0 g/dL [facility] Alkaline Phosphatase 69 39 - 117 U/L [facility] Blood Venous blood specimen / Unknown 05/20/2024 10:18 AM EST 05/20/2024 10:18 AM EST us Chelsea Mejía MD LAB BLOOD ORDERABLES Final Resul t [facility] [address] [place] [phone] * (ABNORMAL) Lipid Panel with Reflex to Direct LDL (01/19/2024 4:30 PM EDT) Pathologist [facility] Triglycerides 236(H) <150 mg/dL [facility] Comment:Desirable Triglyceri de: less than 150 mg/dLBorderline High Triglyceride 150-199 mg/dLHigh Triglyceride: 200-499 mg/dLVery High Triglyceride: greater than or equal to 5OO mg/dL Cholesterol 287(H) <200 mg/dL [facility] Comment:Desirable Cholestero l: less than 200 mg/dLBorderline High Cholesterol: 200-239 mg/dLHigh Cholesterol: greater than 239 mg/dL LDL Cholesterol Calculated 183(H) <100 mg/dL [facility] Comment:Desirable LDL: less than 100 mg/dLNear Optimal/Above Optimal LDL: 110- 129 mg/dLBorderline High LDL: 130-159 mg/dLHigh LDL: 160-189 mg/dLVery High LDL: greater than or equal to 190 mg/dL HDL Cholesterol 57 >40 mg/dL [facility] Comment:Desirable HDL: great er than 40 mg/dL Note: This HDL assay may give artificially low results in patients with liver disease. Blood 01/19/2024 4:30 PM EDT 01/19/2024 5:31 PM EDT Chelsea Mejía MD LAB BLOOD ORDERABLES Final Resul t [facility] [address] [place] [phone] * Colonoscopy (08/18/2022) Colonoscopy Normal Normal Historical Provider HEALTH MAINTENANCE Final Result from Last 3 Months or Most Recently Relevant to Health Maintenance Insurance [facility] HMO Care Teams Sheet Rock Applicator Relationship Specialty Start Date End Date Chelsea Mejía MD [address] [place] [address] PCP - General Family Medicine 04/20/23
--- OUTSIDE RECORDS SUMMARY | 2024-06-21 07:48 | XMS_ITS | Encounter Summary ---
Author Organization [employer] Address [address] [facility] 7t [place] [address] Care Team Providers Care Customer Operations Specialist Name Role Phone Chelsea Mejía MD Primary Care Provider [phone] Reason for Referral * Imaging (Routine) - Authorized Specialty Diagnoses / Procedures Referred By Andrei dhaliwal Referred To Contact Radiology Diagnoses Transaminitis Procedures US Abdomen Comp w elastography Chelsea Mejía MD [address] [place] [address] Phone: tel: fax: [address] Phone: tel: fax: Referral ID Status Reason Start Date Expiration Date V isits Requested Visits Authorized [id number] Authorized 05/20/2024 05/20/2025 1 1 Encounter Details Date Type Department Care Team (Late st Contact Info) Description 05/20/2024 Orders Only [facility] MED[facility]INE [address] [place] [address] Chelsea Mejía MD [address] [place], [place] [phone] Transaminitis (Primary Dx) Social History Tobacco Use Types Packs/Day Years [...] as of this encounter Plan of Treatment Scheduled Orders Name Type Priority Associated Diagnoses Orde r Schedule US Abdomen Comp w elastography Imaging Routine Transaminitis Expected: 05/20/2024, Expires: 05/20/2025 HIV-1/2 Antigen and Antibodies, Fourth Generation, with Reflexes Lab Routine Transaminitis Expected: 08/17/2024 (Approximate), Expires: 05/20/2025 Hepatic Function Panel Lab Routine Transaminitis Expected: 08/17/2024 (Approximate), Expires: 05/20/2025 documented as of this encounter Visit Diagnoses Diagnosis Transaminitis- Primary Nonspecific elevation of levels of transaminase or lactic acid dehydrogenase (LDH) documented in this encounter Additional Health Concerns Assessment Noted Time PHQ-9 Depression Total Score: 0 05/17/19 25 3:50 PM EST documented as of this encounter Care Teams Customer Operations Specialist Relationship Specialty Start Date End Date Chelsea Mejía MD [address] [place] [phone] PCP - General Family Medicine 04/20/23 documented as of this encounter
--- OUTSIDE RECORDS SUMMARY | 2024-06-21 07:49 | XMS_ITS | Patient Health Record ---
Author Organization [facility] Address [address] [place] [phone] Care Team Providers Care Chute Builder Name Role Phone Grady Helton Primary Care Provider Dann Garcia Unavailable [phone] Allergies No Known Allergies Reason For Referral No Information Medications Medication SIG (Take, Route, Frequency, Duration) Notes Start Date End Date Status Levothyroxine Sodium 50 MCG Oral for 90 Active Immunizations Vaccine Route Administration Date Status Comme nts Influenza Unknown 11/28/2021 Administered Social History Tobacco Use: Social History Observation Description Date Details (start date - stop date) Never Smoker NA - NA Tobacco Use/Smoking Question Answer Notes Patient is [...] drinks (3 points) Points 6 Interpretation Positive Section Notes: Nonsmoker; some alcohol on weekend Problems Problem Type SNOMED Code ICD Code Onset Dates Problem Status W/U Status Risk Notes Problem 843319722 Colon cancer screening (Z12.11) Active confirmed Problem 699728748189915 Preprocedural examination (Z01.818) Active confirmed Problem Diverticulosis of colon (386133377) Diverticulosis of colon (K57.30) Active confirmed Plan Of Treatment Pending Test Test Name Order Date Pathology 08/18/2022 Future Test Test Name Order Date COLONOSCOPY 05/30/2022 Insurance Providers Payer Name Payer Address Payer Phone Subscriber Number Group Number Insured Name Patient Relationship to Insured Coverage Start Date Coverage End Date [facility] [address] [place] [phone] [id number] JUAN CESAR Self - patient is the insured Medical (General) History Medical History History ICD Code Denies DC,DM,CVA,Lung disease,renal dise ase Hypothyroidism Surgical History Surgery Date(Month/Year) Vasectomy Left leg benign tumor removal [place] teeth extraction
== END 2024-06-21 07:45 | disposition home or self-care (01) ==
LOC: HO.US 07:44
PROVIDERS: PCP Family Medicine; Visit Provider Family Medicine
DX: R74.01 Elevation of levels of liver transaminase levels (principal)
CPT/HCPCS: 76700; 76981

== ENCOUNTER → 2024-06-21 07:46 | Outpatient (BNV) | payer BC, SELFPAY | PROVIDERS: PCP Family Medicine; Visit Provider Radiology Diagnostic Radiology | DX: K76.0 Fatty (change of) liver, not elsewhere classified (principal); K80.20 Calculus of gallbladder without cholecystitis without obstruction; K82.8 Other specified diseases of gallbladder | CPT/HCPCS: 76700; 76981 ==

== ENCOUNTER 2024-12-06 06:18 | Outpatient (REF) | payer BC, SELFPAY ==
--- OUTSIDE RECORDS SUMMARY | 2024-12-06 06:21 | XMS_ITS | Patient Health Record ---
Author Organization [facility] Address [address] [place] [phone] Care Team Providers Care Plastic Installer Name Role Phone Grady Helton Primary Care Provider Dann Garcia Unavailable [phone] Allergies No Known Allergies Reason For Referral [...] Problem Status W/U Status Risk Notes Problem [id number] Colon cancer screening (Z12.11) Active confirmed Problem [id number] Preprocedural examination (Z01.818) Active confirmed Problem Diverticulosis of colon (284258430) Diverticulosis of colon (K57.30) Active confirmed Plan Of Treatment Pending Test Test Name Order Date Pathology 08/18/2022 Future Test Test Name Order Date COLONOSCOPY 05/30/2022 Insurance Providers Payer Name Payer Address Payer Phone Subscriber Number Group Number Insured Name Patient Relationship to Insured Coverage Start Date Coverage End Date [facility] [address] [place] [phone] [id number] JUAN CESAR Self - patient is the insured Medical (General) History Medical History History ICD Code Denies VA,DM,CVA,Lung disease,renal dise ase Hypothyroidism Surgical History Surgery Date(Month/Year) Vasectomy Left leg benign tumor removal [place] teeth extraction
--- OUTSIDE RECORDS SUMMARY | 2024-12-06 06:21 | XMS_ITS | Encounter Summary ---
Author Organization [employer] Address [address] [facility] 7t [place] [address] Care Team Providers Care Wireless Sales Associate Name Role Phone Grady Helton MD Primary Care Provider Unava ilKemi Camarillo WINDOW CUTTER Primary Care Provider Izzy vailable Kemi Aguilar WINDOW CUTTER Primary Care Provider Izzy vailable Sandra Jaeger AFTER SCHOOL COUNSELOR Primary Care Provider [phone] Chelsea Mejía MD Primary Care Provider [phone] Encounter Details Date Type Department Care Team (Late st Contact Info) Description 03/25/2022 Orders Only [facility] [address] [place], [place] [phone] Ivanna Kulkarni LPN Social History Tobacco Use [...] Care Team (Late st Contact Info) Description 12/06/2024 3:30 PM EDT Office Visit [facility] MEDICINE [address] [place], [place] [phone] Chelsea Mejía MD [address] [place], [place] [phone] documented as of this encounter Procedures Procedure Name Priority Date/Time Associated Diagnosis Comments HEMATOXYLIN AND EOSIN STAIN Routine 08/18/2022 8:17 AM EDT documented in this encounter Results * Hematoxylin and Eosin Stain (08/18/2022 8:17 AM EDT) 08/18/2022 8:17 AM EDT 08/18/2022 8:55 AM EDT Johan [facility] - 08/20/2022 10:23 AM EDT ----- ------- Name: Rubens Quinn Age/Sex: 52/M : 1970 Unit#: [id number] Attend Dr: Dann Daniels Re08/18/22 Status: [facility] Location: [facility] Disch: ----- ------- SPEC : [id number] RECD: 08/18/22 STATUS: JOHNNY MADDOX NUM: [id number] NIDIA: 08/18/22 [facility] DR: Dann Daniels ENTERED: 08/18/22 SP TYPE: Surgical OTHR DR: [facility] ORDERED: HE Stain/3, Gross Micro L4 Diagnosis Colon, 50 cm, polypectomy: Tubular adenoma; negative for high-grade dysplasia or carcinoma. Clinical History Pre-Op Dx: Screening Post-Op Dx: Polyp, diverticulosis, hemorrhoids Microscopic Description Microscopic sections reviewed. Material Received Polyp colon 50 cm. Gross Description Received in formalin labeled colon polyp 50 cm is a 0.5 cm in greatest dimension hyperemic and congested, fang-pink papular tissue fragment which is bisected and entirely submitted in a single cassette labeled A. CEDS Copies To: [facility] [address] [place] [address] [place] [address] ----- ------- Signed (signature on file) Luis Alberto Charlton MD 08/20/22 1023 ----- ------- END OF REPORT [facility] External Provider LAB BLO OD ORDERABLES Final Result [facility] [address] [place] [phone] [phone] documented in this encounter Visit Diagnoses Not on filedocumented in this encounter Care Teams Wireless Sales Associate Relationship Specialty Start Date End Date Grady Helton MD PCP - General Family Medicine 03/14/19 04/27/22 Kemi Aguilar FNP PCP - General Family Medicine 04/28/22 09/10/22 Kemi Aguilar FNP PCP - General Family Medicine 11/03/22 01/05/23 Sandra Jaeger NP [address] [place] [address] PCP - General Family Medicine 01/06/23 04/19/23 Chelsea Mejía MD [address] [place] [address] [place] [address] PCP - General Family Medicine 04/20/23 documented as of this encounter
--- OUTSIDE RECORDS SUMMARY | 2024-12-06 06:21 | XMS_ITS | Encounter Summary ---
Author Organization [employer] Address [address] [place] [address] [address] [place] [address] Care Team Providers Care Nursing Specialist Name Role Phone Grady Helton MD Primary Care Provider Unava Kemi Garcia Primary Care Provider Izzy vaKemi Garcia Primary Care Provider Izzy vailaSandra Fajardo NP Primary Care Provider [phone] Chelsea Mejía MD Primary Care Provider [phone] Reason for Visit * Reason Comments Med Refill Encounter Details Date Type Department Care Team (Late st Contact Info) Description 04/27/2022 Refill [facility] [address] [place] [address] Kemi Aguilar FNP Hypothyroidism, unspecified type Social History Tobacco Use [...] Description 12/06/2024 3:30 PM EDT Office Visit [facility] [address] [place] [address] [phone] Chelsea Mejía MD [address] [place], [place] [phone] documented as of this encounter Visit Diagnoses Diagnosis Hypothyroidism, unspecified type Essential hypertension- Primary Unspecified essential hypertension Dyslipidemia Other and unspecified hyperlipidemia Acquired hypothyroidism Unspecified hypothyroidism Metabolic dysfunction-associated steatotic liver disease (MASLD) Erectile dysfunction, unspecified erectile dysfunction type Tubular adenoma Benign neoplasm of unspecified site documented in this encounter Care Teams Nursing Specialist Relationship Specialty Start Date End Date Grady Helton MD PCP - General Family Medicine 03/14/19 04/27/22 Kemi Aguilar FNP PCP - General Family Medicine 04/28/22 09/10/22 Kemi Aguilar FNP PCP - General Family Medicine 11/03/22 01/05/23 Sandra Jaeger NP [address] [place] [address] PCP - General Family Medicine 01/06/23 04/19/23 Chelsea Mejía MD [address] [place] [address] PCP - General Family Medicine 04/20/23 documented as of this encounter
--- OUTSIDE RECORDS SUMMARY | 2024-12-06 06:21 | XMS_ITS | Clinical Summary ---
Author Organization [employer] Address [address] [facility] [address] [place] [address] Care Team Providers Care Store Keeper Name Role Phone Chelsea Mejía MD Primary Care Provider [phone] Allergies No known active allergies Medications rosuvastatin (Crestor) 5 MG tablet Take 1 tablet (5 mg) by mouth at bedtime. 30 tablet 11 4 02/04/20 25 Active tadalafil (Cialis) 10 MG tablet Take 1 tablet by mouth >=30 minutes prior to anticipated sexual activity; do not take more than once daily. 10 tablet 3 5 Active Semaglutide-Weig ht Management 1.7 MG/0.75ML solution auto-injector Inject 0.75 mL (1.7 mg) under the skin 1 (one) time per week. 3 mL 11 5 Active losartan (Cozaar) 25 MG tablet Take 1 tablet (25 mg) by mouth Once per day. 90 tablet 3 5 Active levothyroxine (Synthroid, Levoxyl) 50 MCG tabletIndication s:Hypothyroidism , unspecified type TAKE 1 TABLET(50 MCG) BY MOUTH IN THE MORNING 90 tablet 5 Active Active Problems Problem Noted Date Diagnosed Date Transaminitis 09/12/2024 Assessment & Plan (09/12/2024 3:40 PM EDT): - Multifactorial, gallstone and metabolic dysfunction-associated steatotic liver disease, possibly medication - Most recent ultrasound was 05/2024 - He started hepatitis A and B immunizations, and needs to complete Cholelithiasis 09/12/2024 Assessment & Plan (09/24/2024 5:17 PM EDT): - Most recent ultrasound in May 2024 showed cholelithiasis without cholecystitis - Reviewed signs and symptoms of cholecystitis. Currently asymptomatic. We agreed to continue monitoring at this time. 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 Daniels - continue working on lifestyle modifications - continue surveillance study Erectile dysfunction 01/19/2024 Assessment & Plan (05/22/2024 1:14 PM EST): - normal testosterone level and PSA - optimize chronic disease management - will prescribe tadalafil Assessment & Plan (01/19/2024 6:25 PM EDT): - check testosterone, PSA, tsh - optimize chronic disease management - prescribe tadalafil if lab is within normal limit Dyslipidemia 01/19/2024 Assessment & Plan (09/24/2024 5:08 PM EDT): - Last lipid profile 01/19/2024 - 10-year ASCVD risk is 8.9% - Continue working on lifestyle modifications - Continue rosuvastatin 5 mg nightly Assessment & Plan (05/17/2024 2:57 PM EST): Currently not on medication since 10-year ASCVD risk is 6.2% Continue working on lifestyle modifications Assessment & Plan (01/19/2024 6:26 PM EDT): Currently not on medication since 10-year ASCVD risk is 6.2% Continue working on lifestyle modifications Diverticulosis of colon 04/20/2023 04/20/19 24 Tubular adenoma 04/20/2023 Assessment & Plan (09/24/2024 5:15 PM EDT): - colonoscopy on 08/18/[address] Daniels - lifestyle modifications to prevent colon cancer Assessment & Plan (05/17/2024 2:57 PM EST): [...] cancer Hypothyroidism 09/03/2017 04/20/2023 Assessment & Plan (09/24/2024 5:11 PM EDT): - current replacement levothyroxine 50 mcg daily - check thyroid function test and adjust accordingly - Most recent TSH 3.34 and free T4 =0.77 On 05/20/2024 Assessment & Plan (05/17/2024 2:56 PM EST): [...] test Essential hypertension 08/20/2017 Assessment & Plan (09/24/2024 5:05 PM EDT): -Goal BP < 130/80 per ACC/AHA guideline (Treatment threshold >= 140/90) -BP not at goal, despite losing weight -Continue working on lifestyle modifications -Recommended self-monitoring BP. -Continue losartan 25 mg daily -Treatment Hx: Prescribed hydrochlorothiazide previously, but never took it -consider sleep study -Follow up in 3 mo, sooner if any problem arises Assessment & Plan (05/22/2024 1:14 PM EST): [...] arises Obesity 08/20/2017 04/20/2023 Assessment & Plan (09/24/2024 5:10 PM EDT): - Continue semaglutide 1.7 mg weekly. - Continue current effort on lifestyle modifications - Generic advice as below. Tailor for your unique body, character, and specific condition. Dietary Recommendations: Fruits, vegetables, whole grains, protein foods, and fat-free or low-fat dairy products are healthy choices. Eat different types of protein foods in your diet. This can include seafood, lean meats, poultry, beans, peas, lentils, nuts, seeds, soy products, and eggs. Limit foods and beverages higher in added sugars, saturated fat, and sodium. Exercise Recommendations: At least 150 minutes of moderate-intensity physical activity per week, or an equivalent combination of moderate- and vigorous-intensity activity Assessment & Plan (05/22/2024 1:17 PM EST): - Will increase semaglutide dose to 1 mg. If pt has no side effects after 4 doses and no further weight loss, we will increase his the dose to 2 mg. 05/17/24 Assessment & Plan (01/19/2024 6:17 PM EDT): - will try GLP1RA Varicose veins of lower extremity 08/20/2017 04/20/2023 Assessment & Plan (09/14/2024 12:57 PM EDT): - s/p phlebectomy by [facility] vascular specialist in 2019 Assessment & Plan (05/17/2024 2:57 PM EST): - s/p phlebectomy by [facility] vascular specialist in 2020 Assessment & Plan (04/20/2023 9:42 PM EST): - s/p phlebectomy by [facility] vascular specialist in 2019 Daytime somnolence 08/20/2017 04/20/2023 Assessment & Plan (05/22/2024 1:13 PM EST): - loud snoring - consider evaluating with sleep study - since he started GLP1RA, his symptoms may improve Assessment & Plan (04/20/2023 6:09 PM EST): - loud snoring - consider evaluating with sleep study Encounters Date Type Department Care Team Description 12/05/2024 Telephone [facility] [address] [place] [address] Chelsea Mejía MD chart prep 09/24/2024 Refill [facility] [address] [place] [address] Renuka Salazar, [place] Hypothyroidism, unspecified type 09/12/2024 3:00 PM EDT Office Visit [facility] [address] [place] [address] Chelsea Mejía MD Essential hypertension (Primary Dx); Dyslipidemia; Varicose veins of lower extremity, unspecified laterality, unspecified whether complicated; Acquired hypothyroidism; Class 2 severe obesity due to excess calories with serious comorbidity and body mass index (BMI) of 35.0 to 35.9 in adult (CMS/HCC); Transaminitis; Metabolic dysfunction-associated steatotic liver disease (MASLD); Dietary counseling; Exercise counseling; Tubular adenoma; Calculus of gallbladder without cholecystitis without obstruction 09/12/2024 Travel 09/08/2024 Telephone [facility] [address] [place] [address] Chelsea Mejía MD chart prep from Last 3 Months Immunizations Immunization Administration Dates Next Due Hep B, adult [...] Sign Reading Time Taken Comments Blood Pressure 148/82 09/12/2024 3:37 PM EDT Pulse 60 09/12/2024 3:07 PM EDT Temperature 36.7 C (98.1 F) 09/12/2024 3:07 PM EDT Respiratory Rate 12 09/12/2024 3:07 PM EDT Oxygen Saturation 97% 05/17/2024 2:03 PM EST Inhaled Oxygen Concentration - - Weight 90.6 kg (199 lb 12.8 oz) 09/12/2024 3:07 PM EDT Height 165.1 cm (5' 5 ) 09/12/2024 3:07 PM EDT Body Mass Index 33.25 09/12/2024 3:07 PM EDT Plan of Treatment Upcoming Encounters Date Type Department Care Team (Late st Contact Info) Description 12/06/2024 3:30 PM EDT Office Visit [facility] [address] [place] [address] Chelsea Mejía MD [address] [place] [address] Health Maintenance Due Date Last Done Comments CT Colonography 1972 FIT DNA/Cologuard 1972 FIT 1972 FOBT 1972 HIV Screening 1972 Sigmoidoscopy 1972 Family Planning (PISQ) 1987 Hepatitis A Vaccines (1 of 2 - Risk 2-dose series) 1991 Pneumococcal Vaccine: 50+ Years (1 of 1 - PCV) 2022 Zoster Vaccines (1 of 2) 2022 Hepatitis B Vaccines (2 of 3 - 19+ 3-dose series) 02/16/2024 01/19/2024 Influenza Vaccine (#1) 2024 , 04/20/2023, 01/20/2022, Additional history exists SDOH Screening 05/02/2025 05/02/2024 Alcohol/Substance Use Screening 05/17/2025 05/17/2024 Depression Screening 05/17/2025 05/17/2024, 05/17/19 25 Disability Screening 09/12/2025 09/12/2024 Tobacco Screening 09/24/2025 09/24/2024 DTaP/Tdap/Td Vaccines (2 - Td or Tdap) 08/21/2027 08/20/2017 Lipid Panel 01/18/2029 01/19/2024, 2023 Colonoscopy 08/18/2032 08/18/2022 Colorectal Cancer Screening 08/18/2032 RSV Patients and Patients Aged 60 years or older (1 - 1-dose 75+ series) 2047 COVID-19 Vaccine Completed 01/19/2024, , 02/27/2021, Additional history exists Hepatitis C Screening Completed 05/20/2024 HIB Vaccines Aged Out No longer eligi ble based on patient's age to complete this topic HPV Vaccines Aged Out No longer eligi ble based on patient's age to complete this topic IPV Vaccines Aged Out No longer eligi ble based on patient's age to complete this topic Meningococcal B Vaccine Aged Out No l onger eligible based on patient's age to complete [...] Name Priority Date/Time Associated Diagnosis Comments HEPATITIS C AB W/REFL TO HCV RNA, QN, PCR Routine 05/20/2024 10:18 AM EST Transaminitis LIPID PANEL WITH REFLEX TO DIRECT LDL Routine 01/19/2024 4:30 PM EDT Dyslipidemia HM COLONOSCOPY Routine 08/18/2022 from Last 3 Months or Most Recently Relevant to Health Maintenance Results * Hepatitis C Antibody with Reflex to HCV, RNA, Quantitative, Real-Time PCR (05/20/2024 10:18 AM EST) Hepatitis C Antibody Nonreactive Nonreactive [facility] Comment:Antibodies to HCV no t detected; does not exclude early acuteHCV infection. Blood Venous blood specimen / Unknown 05/20/2024 10:18 AM EST 05/20/2024 10:18 AM EST us Chelsea Mejía MD LAB BLOOD ORDERABLES Final Resul t [facility] [address] [place] [address] [phone] * (ABNORMAL) Lipid Panel with Reflex to Direct LDL (01/19/2024 4:30 PM EDT) Triglycerides 236(H) <150 mg/dL [facility] Comment:Desirable Triglyceri de: less than 150 mg/dLBorderline High Triglyceride 150-199 mg/dLHigh Triglyceride: 200-499 mg/dLVery High Triglyceride: greater than or equal to 5OO mg/dL Cholesterol 287(H) <200 mg/dL [facility] Comment:Desirable Cholestero l: less than 200 mg/dLBorderline High Cholesterol: 200-239 mg/dLHigh Cholesterol: greater than 239 mg/dL LDL Cholesterol Calculated 183(H) <100 mg/dL [facility] Comment:Desirable LDL: less than 100 mg/dLNear Optimal/Above Optimal LDL: 110- 129 mg/dLBorderline High LDL: 130-159 mg/dLHigh LDL: 160-189 mg/dLVery High LDL: greater than or equal to 190 mg/dL HDL Cholesterol 57 >40 mg/dL [facility] Comment:Desirable HDL: great er than 40 mg/dL Note: This HDL assay may give artificially low results in patients with liver disease. Blood 01/19/2024 4:30 PM EDT 01/19/2024 5:31 PM EDT Chelsea Mejía MD LAB BLOOD ORDERABLES Final Resul t [facility] [address] [place] [address] [phone] * Colonoscopy (08/18/2022) Colonoscopy Normal Normal Aneta Provider HEALTH MAINTENANCE Final Result from Last 3 Months or Most Recently Relevant to Health Maintenance [place] [address] [address] HMO Care Teams Store Keeper Relationship Specialty Start Date End Date Chelsea Mejía MD [address] [place] [address] PCP - General Family Medicine 04/20/23
--- OUTSIDE RECORDS SUMMARY | 2024-12-06 06:21 | XMS_ITS | Encounter Summary ---
Author Organization [employer] Address [address] [facility] [address]t [place] [address] Care Team Providers Care Scarf Gluer Name Role Phone Chelsea Mejía MD Primary Care Provider [phone] Encounter Details Date Type Department Care Team (Late st Contact Info) Description 01/22/[address] [facility] [address] [place] [address] Sadaf Gerardo [place] Social History Tobacco Use [...] Description 12/06/2024 3:30 PM EDT Office Visit [facility] [address] [place] [address] Chelsea Mejía MD [address] [place] [address] documented as of this encounter Procedures Procedure Name Priority Date/Time Associated Diagnosis Comments COLONOSCOPY Routine 08/18/2022 documented in this encounter Results * Colonoscopy (08/18/2022) Colonoscopy Normal Normal Historical Provider HEALTH MAINTENANCE Final Result documented in this encounter Visit Diagnoses Not on filedocumented in this encounter Care Teams Scarf Gluer Relationship Specialty Start Date End Date Chelsea Mejía MD [address] [place], [place] [phone] PCP - General Family Medicine 04/20/23 documented as of this encounter
--- OUTSIDE RECORDS SUMMARY | 2024-12-06 06:21 | XMS_ITS | Encounter Summary ---
Author Organization [employer] Address [address] [place] [address] [address] [place] [address] Care Team Providers Care Cake Wrapper Name Role Phone Chelsea Mejía MD Primary Care Provider [phone] Reason for Referral * Imaging (Routine) - Closed Specialty Diagnoses / Procedures Referred By Andrei dhaliwal Referred To Contact Radiology Diagnoses Transaminitis Procedures US Abdomen Comp w elastography Chelsea Mejía MD [address] [place] [address] Phone: tel: fax: [address] Phone: tel: fax: Referral ID Status Reason Start Date Expiration Date Visits Re quested Visits Authorized [id number] Closed 05/20/2024 05/20/2025 1 1 Encounter Details Date Type Department Care Team (Late st Contact Info) Description 05/20/2024 Orders Only [facility] [address] [place] [address] [phone] Chelsea Mejía MD [address], [place] [phone] Transaminitis (Primary Dx) Social History Tobacco Use [...] Description 12/06/2024 3:30 PM EDT Office Visit [facility] [address] [place] [address] Chelsea Mejía MD [address] [place] [address] Scheduled Orders Name Type Priority Associated Diagnoses Orde r Schedule HIV-1/2 Antigen and Antibodies, Fourth Generation, with Reflexes Lab Routine Transaminitis Expected: 08/17/2024 (Approximate), Expires: 05/20/2025 Hepatic Function Panel Lab Routine Transaminitis Expected: 08/17/2024 (Approximate), Expires: 05/20/2025 documented as of this encounter Procedures Procedure Name Priority Date/Time Associated Diagnosis Comments US ABDOMEN COMPLETE WITH ELASTOGRAPHY Routine 06/21/2024 8:17 AM EDT Transaminitis documented in this encounter Results * US Abdomen Comp w elastography (06/21/2024 8:17 AM EDT) Anatomical Region Laterality Modality Abdomen Ultrasound 06/21/2024 8:17 AM EDT Narrative 06/21/2024 9:33 AM EDT [place] [address] Ultrasound Report Signed Patient: Rubens Quinn MR#: [id number] : 1970 Acct:[id number] Age/Sex: 54 / M ADM Date: 06/21/24 Loc: HO.US Attending Dr: Chelsea Mejía MD Ordering Physician: Chelsea Mejía MD Date of Service: 06/21/24 Procedure(s): US abdomen comp w elastography Accession Number(s): [id number] cc: Chelsea Mejía MD EXAMINATION: US ABDOMEN COMPLETE WITH LIVER ELASTOGRAPHY HISTORY: transaminitis. Asymptomatic. Likely fatty liver. TECHNIQUE: Real-time grayscale ultrasound imaging of the abdomen was performed and images were reviewed. COMPARISON: There are no prior studies for comparison. FINDINGS: Liver: The right lobe of the liver measures 14.8 cm in size. The left lobe of the liver measures 7.4 cm in size. The liver demonstrates increased echotexture, consistent with steatosis. No focal mass or intrahepatic biliary ductal dilatation is identified. There is normal hepatopedal flow in the portal vein. Ultrasound elastography of the liver was performed with 10 separate measurements of the liver parenchyma with the patient in the supine position. Measurements were obtained approximately 2 cm below Keysha's capsule and perpendicular to the capsule. Images are of satisfactory quality. The median shear wave velocity is 1.81 m/s. The interquartile range/median (IQR/median) is 0.10. Gallbladder and biliary tree: There are multiple calculi in the gallbladder. There is also the suggestion of ringdown artifact from the gallbladder wall compatible with adenomyomatosis. There is no sonographic Victoria sign. The common bile duct is normal in caliber measuring 3 mm. Kidneys: The right kidney measures 10.3 cm in length. The left kidney measures 10.2 cm in length. The kidneys are unremarkable, without evidence of masses, hydronephrosis, or calculi. Pancreas: The pancreas is obscured by bowel gas. Spleen: The spleen is normal in size and contour, measuring 8.8 cm in length. Abdominal aorta and inferior vena cava: The visualized portions of the abdominal aorta and inferior vena cava are normal in caliber. There is no free fluid in the abdomen. US/US abdomen comp w elastography IMPRESSION: Hepatic steatosis. 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 The median shear wave velocity in the liver is 1.81 m/s, corresponding to a median liver stiffness of 10.00 kPa. The IQR/median value is 0.10. This is indicative of a quality data set. Findings are indicative of a high elastography value suggestive of compensated advanced chronic liver disease. REFERENCE: Society of Radiologists in Ultrasound Liver Stiffness Thresholds (2020): LIVER STIFFNESS THRESHOLDS: *Shear wave velocity less than 1.3 m/s (Liver Stiffness equal or less than 5 kPa): High probability of being normal. *Shear wave velocity less than 1.7 m/s (Liver Stiffness less than 9 kPa): In the absence of other known clinical signs, rules out compensated advanced chronic liver disease. *Shear wave velocity between 1.7-2.1 m/s (Liver Stiffness 9-13 kPa): Suggestive of compensated advanced chronic liver disease but need further test for confirmation. *Shear wave velocity between 2.1-2.4 m/s (Liver Stiffness 13-17 kPa): Rules in compensated advanced chronic liver disease. *Shear wave velocity greater than 2.4 m/s (Liver Stiffness over 17 kPa): Suggestive of clinically significant portal hypertension. QUALITY OF DATA SET: *IQR/Median value equal or less than 0.15 implies a quality data set. *IQR/Median value over 0.15 implies a poor quality data set. SIGNIFICANT CHANGE FROM PRIOR EXAM: Significant change if liver stiffness measurement is 10% or greater from prior exam. OTHER CONSIDERATIONS: The stage of liver fibrosis may be overestimated in the setting of acute hepatitis, liver inflammation, elevated liver function tests, hepatic vascular congestion, obstructive cholestasis, non-fasting state, and infiltrative diseases such as amyloidosis and lymphoma. In some patients with NAFLD, the liver stiffness thresholds for compensated advanced chronic liver disease may be lower. In causes other than viral hepatitis and NAFLD, liver stiffness thresholds are not well established. Electronically signed by: Dann Kahn MD 06/21/2024 09:30 AM EDT RP Dictated By: Dann Kahn MD Signed By: <Electronically signed by Dann Kahn MD in [place]> 06/21/24929 DD/ 08 TD/TT: 06/21/24 0846 [employer] Associate: Procedure Note Donotuseinterpreter, Image - 06/21/2024 [place] [address] Ultrasound Report Signed Patient: Solis Quinn#: [id number] : 1970Acct:[id number] Age/Sex: 54 / MADM Date: 06/21/24 Loc: HO.US Attending Dr: Chelsea Mejía MD Ordering Physician: Chelsea Mejía MD Date of Service: 06/21/24 Procedure(s): US abdomen comp w elastography Accession Number(s): [id number] cc: Chelsea Mejía MD EXAMINATION: US ABDOMEN COMPLETE WITH LIVER ELASTOGRAPHY HISTORY: transaminitis. Asymptomatic. Likely fatty liver. TECHNIQUE: Real-time grayscale ultrasound imaging of the abdomen was performed and images were reviewed. COMPARISON: There are no prior studies for comparison. FINDINGS: Liver: The right lobe of the liver measures 14.8 cm in size. The left lobe of the liver measures 7.4 cm in size. The liver demonstrates increased echotexture, consistent with steatosis. No focal mass or intrahepatic biliary ductal dilatation is identified. There is normal hepatopedal flow in the portal vein. Ultrasound elastography of the liver was performed with 10 separate measurements of the liver parenchyma with the patient in the supine position. Measurements were obtained approximately 2 cm below Keysha's capsule and perpendicular to the capsule. Images are of satisfactory quality. The median shear wave velocity is 1.81 m/s. The interquartile range/median (IQR/median) is 0.10. Gallbladder and biliary tree: There are multiple calculi in the gallbladder. There is also the suggestion of ringdown artifact from the gallbladder wall compatible with adenomyomatosis. There is no sonographic Victoria sign. The common bile duct is normal in caliber measuring 3 mm. Kidneys: The right kidney measures 10.3 cm in length. The left kidney measures 10.2 cm in length. The kidneys are unremarkable, without evidence of masses, hydronephrosis, or calculi. Pancreas: The pancreas is obscured by bowel gas. Spleen: The spleen is normal in size and contour, measuring 8.8 cm in length. Abdominal aorta and inferior vena cava: The visualized portions of the abdominal aorta and inferior vena cava are normal in caliber. There is no free fluid in the abdomen. US/US abdomen comp w elastography IMPRESSION: Hepatic steatosis. 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 The median shear wave velocity in the liver is 1.81 m/s, corresponding to a median liver stiffness of 10.00 kPa. The IQR/median value is 0.10. This is indicative of a quality data set. Findings are indicative of a high elastography value suggestive of compensated advanced chronic liver disease. REFERENCE: Society of Radiologists in Ultrasound Liver Stiffness Thresholds (2020): LIVER STIFFNESS THRESHOLDS: *Shear wave velocity less than 1.3 m/s (Liver Stiffness equal or less than 5 kPa): High probability of being normal. *Shear wave velocity less than 1.7 m/s (Liver Stiffness less than 9 kPa): In the absence of other known clinical signs, rules out compensated advanced chronic liver disease. *Shear wave velocity between 1.7-2.1 m/s (Liver Stiffness 9-13 kPa): Suggestive of compensated advanced chronic liver disease but need further test for confirmation. *Shear wave velocity between 2.1-2.4 m/s (Liver Stiffness 13-17 kPa): Rules in compensated advanced chronic liver disease. *Shear wave velocity greater than 2.4 m/s (Liver Stiffness over 17 kPa): Suggestive of clinically significant portal hypertension. QUALITY OF DATA SET: *IQR/Median value equal or less than 0.15 implies a quality data set. *IQR/Median value over 0.15 implies a poor quality data set. SIGNIFICANT CHANGE FROM PRIOR EXAM: Significant change if liver stiffness measurement is 10% or greater from prior exam. OTHER CONSIDERATIONS: The stage of liver fibrosis may be overestimated in the setting of acute hepatitis, liver inflammation, elevated liver function tests, hepatic vascular congestion, obstructive cholestasis, non-fasting state, and infiltrative diseases such as amyloidosis and lymphoma. In some patients with NAFLD, the liver stiffness thresholds for compensated advanced chronic liver disease may be lower. In causes other than viral hepatitis and NAFLD, liver stiffness thresholds are not well established. Electronically signed by: Dann Kahn MD 06/21/2024 09:30 AM EDT RP Dictated By: Dann Kahn MD Signed By: <Electronically signed by Dann Kahn MD in [place]> 06/21/24 0930 DD/ 0817 TD/TT: 06/21/24 0846 [employer] Associate: us Chelsea Mejía MD [facility] [place] US PROCEDURES Edited Result - Final documented in this encounter Visit Diagnoses Diagnosis Transaminitis- Primary Nonspecific elevation of levels of transaminase or lactic acid dehydrogenase (LDH) Essential hypertension- Primary Unspecified essential hypertension Dyslipidemia Other and unspecified hyperlipidemia Acquired hypothyroidism Unspecified hypothyroidism Metabolic dysfunction-associated steatotic liver disease (MASLD) Erectile dysfunction, unspecified erectile dysfunction type Tubular adenoma Benign neoplasm of unspecified site documented in this encounter Additional Health Concerns Assessment Noted Time PHQ-9 Depression Total Score: 0 05/17/19 25 3:50 PM EST documented as of this encounter Care Teams Cake Wrapper Relationship Specialty Start Date End Date Chelsea Mejía MD [address] [place] [address] PCP - General Family Medicine 04/20/23 documented as of this encounter
--- OUTSIDE RECORDS SUMMARY | 2024-12-06 06:21 | XMS_ITS | Encounter Summary ---
Author Organization [employer] Address [address] [facility] [address] [place] [address] Care Team Providers Care Psychologist Clinical Name Role Phone Chelsea Mejía MD Primary Care Provider [phone] Reason for Visit * Reason Onset Date Comments chart prep 12/05/2024 Encounter Details Date Type Department Care Team ([facility] st Contact Info) Description 12/05/2024 Telephone [facility] [address] [place] [address] Chelsea Mejía MD [address] [place] [address] chart prep Social History Tobacco Use Types [...] encounter Miscellaneous Notes * Telephone Encounter - Harriet Patton [place] - 12/05/2024 12:58 PM EDT Chart Prep Labs: not done Images: done Referrals: not applicable Vaccines due: Flu, PCV20, Hep B, Hep A, and Zoster Screenings: STI screening Overdue care gaps: Not applicable documented in this encounter Plan of Treatment Upcoming Encounters Date Type Department Care Team (Late st Contact Info) Description 12/06/2024 3:30 PM EDT Office Visit [facility] [address] [place] [phone] Chelsea Mejía MD [address] [place] [address] documented as of this encounter Visit Diagnoses Not on filedocumented in this encounter Additional Health Concerns Assessment Noted Time PHQ-9 Depression Total Score: 0 05/17/19 25 3:50 PM EST documented as of this encounter Care Teams Psychologist Clinical Relationship Specialty Start Date End Date Chelsea Mejía MD [address] [place] [id number] PCP - General Family Medicine 04/20/23 documented as of this encounter
[2024-12-06 08:42] LABS: Alanine Aminotransferase 28 U/L (0-40); Albumin Level 4.5 g/dL (3.5-5.0); Alkaline Phosphatase 67 U/L (39-117); Aspartate Amino Transferase 38 U/L (5-37); Cholesterol 186 mg/dL (<200); HDL Cholesterol 54 mg/dL (>40); Total Protein 7.4 g/dL (6.5-8.0); Triglycerides 132 mg/dL (<150)
[2024-12-06 08:45] LABS: HIV Num 1 0.08 S/CO (0.00-0.99)
[2024-12-06 08:50] LABS: Reflex LDLD? No
[2024-12-06 10:00] LABS: Free T4 (Free Thyroxine) 0.76 ng/dL (0.71-1.85)
== END 2024-12-06 06:19 | disposition home or self-care (01) ==
LOC: HO.LAB 06:18
PROVIDERS: PCP Family Medicine; Visit Provider Family Medicine
DX: Z11.4 Encounter for screening for human immunodeficiency virus [HIV] (principal); E03.9 Hypothyroidism, unspecified; E78.5 Hyperlipidemia, unspecified; R74.01 Elevation of levels of liver transaminase levels
CPT/HCPCS: 36415; 80061; 80076; 84439; 84443; 87389